=== PATIENT | female | born 1960 | race Caucasian/White ===

== ENCOUNTER 2019-01-27 06:09 | Day surgery (SDC) | payer BC ==
[2019-01-23 11:04] LABS: Absolute Lymphocytes (CBC) 0.7 K/uL (0.7-4.9); Absolute Monocytes 0.5 K/uL (0.1-1.3); Absolute Neutrophil 3.1 K/uL (1.8-8.0); Basophils % 0.5 % (0-1.3); Eosinophils % 1.3 % (0-4.4); Hematocrit 45.6 % (36.0-45.0); Lymphocytes % 16.7 % (15.3-44.8); MPV 10.2 fL (7.6-11.3); Monocytes % 10.3 % (3.3-12.3); RBC Red Blood Cell Count 4.55 M/uL (3.86-4.86)
[2019-01-23 11:08] LABS: Protime INR 0.89
[2019-01-23 11:12] LABS: Potassium 4.1 mmol/L (3.5-5.1)
[2019-01-23 11:23] LABS: Albumin 3.9 g/dL (3.4-5.0); Bilirubin Direct 0.2 mg/dL (0-0.2); Bilirubin Total 0.6 mg/dL (0.2-1.0); Protein, Total 7.5 g/dL (6.4-8.2)
[2019-01-27] MEDS ORDERED: Ringers Lactate 1,000 ML IV ONE ×2 (06:47→11:44)
[2019-01-27] MEDS ORDERED: CEFAZOLIN/SWI 1gm 1 GM/10 ML SYR ONE (06:47)
--- NOTE | 2019-01-27 08:18 | RAD REPORT ---
EXAM DESCRIPTION: NM - Lymphoscintigraphy - 01/27/2019 8:08 am CLINICAL HISTORY: Breast cancer COMPARISON: None. TECHNIQUE: Four injections of 0.01 millicuries technetium filtered sulfur colloid administered into the the holley arerolar region of the right breast. The injections were placed at Twelve o'clock, 3 o'c lock, 6 o'clock and 9 o'clock positions. Subsequently a scintigram was obtained which demonstrated the radiotracer within these locations. IMPRESSION: Right breast lymphoscintigram
[2019-01-27] MEDS ORDERED: METHYLENE BLUE 0.5% 10 ML AMP ONE (08:45)
[2019-01-27] MEDS ORDERED: BUPIVACA 0.25%/EPI 0.0005% MDV 50 ML VIAL ONE (08:45)
[2019-01-27] MEDS ORDERED: PROPOFOL 200 MG/20 ML VIAL IV ONE (10:01)
[2019-01-27] MEDS ORDERED: FENTANYL CITR 100 MCG/2 ML ONE ×3 (10:01→11:18)
[2019-01-27] MEDS ORDERED: MIDAZOLAM HCL 2 MG/2 ML INJ ONE (10:02)
[2019-01-27] MEDS ORDERED: LIDOCAINE 2% MPF 5 ML VIAL ONE (10:02)
[2019-01-27] MEDS ORDERED: ROCURONIUM 50 MG/5 ML VIAL IV ONE (10:03)
[2019-01-27] MEDS ORDERED: ONDANSETRON 4 MG/2 ML VIAL ONE (10:03)
[2019-01-27] MEDS ORDERED: GLYCOPYRROLATE 0.2 MG/ML SYR ONE (10:49)
[2019-01-27] MEDS ORDERED: HYDRALAZINE HCL 20 MG/ML VIAL ONE (11:57)
[2019-01-27] MEDS ORDERED: MORPHINE 10 MG/ML VIAL ONE (11:59)
--- NOTE | 2019-01-27 12:25 | P.OP ---
Psych Therapist: betzy Preoperative diagnosis: Right Breast Invasive Ductal Carcinoma Postoperative diagnosis: Right Breast Invasive Ductal Carcinoma Primary procedure: Right Breast Lumpectomy / Partial Mastectomy Secondary procedure: Axillary Dissection Anesthesia: GETA Estimated blood loss: <20cc Specimen: Right Breast Masses, Axillary Contents Findings: Axilla was negative for radiotracer uptake Complications: None Drain(s): ROGE drain Transferred to: Recovery Room Condition: Good
--- NOTE | 2019-01-27 12:32 | RAD REPORT ---
EXAM DESCRIPTION: US - Surgical Specimen - 01/27/2019 11:58 am CLINICAL HISTORY: Breast neoplasm IMPRESSION: Ultrasound demonstrates the resected hypoechoic breast mass of A to lie within the speci men.
--- NOTE | 2019-01-27 12:33 | RAD REPORT ---
EXAM DESCRIPTION: US - Surgical Specimen - 01/27/2019 11:58 am CLINICAL HISTORY: Breast neoplasm IMPRESSION: Ultrasound demonstrates the resected hypoechoic breast mass of B to lie within the speci men
[2019-01-27] MEDS: HYDROMORPHONE HCL 1 MG/ML INJ ONE ×2 (12:53→12:59)
[2019-01-27] MEDS ORDERED: PROMETHAZINE 25 MG/ML VIAL ONE (13:03)
[2019-01-27] MEDS ORDERED: MEPERIDINE HCL 50 MG/ML AMP ONE (13:13)
--- NOTE | 2019-01-27 13:52 | RAD REPORT ---
EXAM DESCRIPTION: US - Brst,Preop NL Wire Init w/Guid - 01/27/2019 8:37 am CLINICAL HISTORY: Breast masses. TECHNIQUE: Under sonographic evaluation the two breast masses within the upper right breast were loc alized. Skin and subcutaneous tissues were anesthetized with Lidocaine. Hook wires were placed into each lesion within the upper breast. The patient then left for the surgic al department IMPRESSION: Ultrasound-guided needle wire localization of two breast masses.
[2019-01-27] MEDS ORDERED: HYDROCODONE/APAP 7.5/325 MG TAB ONE (15:02)
--- NOTE | 2019-01-27 23:38 | OP ---
Date of Procedure: 01/27/2019 Surgeon: Jaycob Rebollar MD, Preoperative Diagnosis: Right breast invasive ductal carcinoma. Postoperative Diagnosis: Right breast invasive ductal carcinoma. Procedure Performed: Right breast lumpectomy using preoperative needle localization of 2 masses in t he right breast/partial mastectomy. Secondary Procedure: Attempted sentinel lymph node biopsy, but as the sentinel lymph node could not be identified and the axilla was negative for radioactive tracer uptake, an axillary dissection was p erformed. Anesthesia: General endotracheal. Estimated Blood Loss: Less than 20 cc. Specimen: 1.Right breast masses with wire localizations evident. 2.Axillary contents. Findings: 1.Axilla was negative for radiotracer uptake. 2.Faxitron was used to confirm removal of entire breast mass specimen using the previously described needle localization. This verified all the specimen was adequate for removal of the mass. Complications: None. Drains: A 10-Singaporean round ROGE drain left in the axilla. Disposition: Transferred to recovery room in good condition. Procedure In Detail: After informed consent was obtained, the patient was brought to the operating r oom, prepped and draped in the usual sterile fashion. After adequate anesthesia was achieved, I inje cted in the periareolar fashion with 10 cc of methylene blue, 5 minutes of gentle massage to the paige st tissue to attempt to drain the ink to the axilla was performed. The Gamma probe was used on the b reast surface and found to have a count of approximately 18,000 in vivo. There were 2 wires, which w ere previously placed along with the lymphoscintigraphy performed earlier this morning. The wires we re obvious in the 12 o'clock position into the breast tissue. I checked the axilla at this time and did not have significant uptake. It was approximately 100 on the Gamma probe, but I feel that this w as likely bleeded from the rest tissue. As such, I performed a small elliptical incision in the appr oximately 11 o'clock to 12 o'clock position including the 2 wire insertion sites on the right breast. I dissected down in a conical type fashion to include both breasts as 1 specimen. After I took thi s breast tissue out in a conical fashion, good hemostasis was achieved with electrocautery. I orient ed and place orientation stitches on and sent this specimen off. I palpated the area and felt that t here was some fullness into the medial deep margin of the retroareolar mass and as such I took an add itional margin. I took this out, marked it with marking sutures as well and sent it off for Faxitron to confirm that all the masses seen on preoperative imaging were confirmed on intraoperative imaging /postoperative imaging and confirmed that the specimen was removed in its entirety. Once this was co nfirmed, the area was copiously irrigated and closed with interrupted 3-0 Vicryl sutures, and the ski n was closed with a 4-0 Monocryl in running fashion. Dermabond was then placed over the top. I then turned my attention to the axilla and using a slightly lazy-S orientation incision, I made an incisi on. I cut through the fat and into the clavipectoral fascia to expose the axillary contents. I used the Gamma probe, however, a reading greater than 10 could not be appreciated on any of the axillary contents. As such I decided to proceed with an axillary dissection. I dissected down to the latissi mus dorsi and then dissected along the pectoralis major muscle using electrocautery. Once I opened u p the clavipectoral fascia in its entirety, I dissected down to expose the superior aspect of the dis section, which was the brachial vein. When this was exposed, I followed this laterally out to the th oracodorsal neurovascular bundle, which was protected throughout. The medial pectoral vein was also appreciated and this was spared throughout the procedure. I dissected down along the medial aspect a long the serratus anterior to expose the long thoracic nerve, which was protected throughout the proc edure as well. I then continued dissection circumferentially around and into the axillary contents, sweeping down and protecting the thoracodorsal bundle and long thoracic and the medial pectoral bundl e. I continued to dissect out circumferentially and removed the axillary contents in its entirety in a pyramidal fashion. When this was removed, it was sent off for pathologic examination as axillary contents. A blue lymph node was appreciated in the specimen, however, that was a single blue lymph n ode. I sent this for frozen section prior to the completion of the axillary dissection. This came b ack as negative with minimal ink evident within the lymph node. There was minimal ink visualized thr oughout the entire axillary dissection. I then copiously irrigated the area and hemostasis was achie brittani easily without any additional hemostatic maneuvers. At this time, I placed a 10-Singaporean round ROGE drain through a separate stab incision inferior to the previous incision and brought it into the axil erick space. I then reapproximated the deep dermal layers with interrupted 3-0 Vicryl and placed a 4- 0 Monocryl in a running fashion at the skin level. Dermabond was placed again on top. At this point , a suture was placed into the drain suture to secure to the skin, which was a 3-0 nylon suture and a sterile dressing was placed over the top of both the incisions. The patient tolerated the procedure well without complication and transferred to the PACU in good condition. All counts were correct at the end of the case. REED/DODIE Voice ID: [id number] Report ID: [id number]
== END 2019-01-27 16:00 | disposition home or self-care (01) ==
LOC: OR 06:09
PROVIDERS: ATTEND Surgery
PROC: 07B50ZX Excision of Right Axillary Lymphatic, Open Approach, Diagnostic (ICD-10-PCS; 2019-01-27)
PROC: 0HBT0ZX Excision of Right Breast, Open Approach, Diagnostic (ICD-10-PCS; principal; 2019-01-27 09:00)
DX: C50.811 Malignant neoplasm of overlapping sites of right female breast (principal); I10 Essential (primary) hypertension; F17.210 Nicotine dependence, cigarettes, uncomplicated; Z79.82 Long term (current) use of aspirin; Z79.899 Other long term (current) drug therapy
CPT/HCPCS: 19285; 36415; 76098; 78195; 80051; 80076; 82565; 84520; 85025; 85610; 85730; 88305; 88307; 88331; 88332; 88333; A9541; J0360; J0690; J1170; J2175; J2250; J2405; J2550; J2704; J3010

== ENCOUNTER 2019-02-10 08:09 | Day surgery (SDC) | payer BC ==
[2019-02-10] MEDS ORDERED: Ringers Lactate 1,000 ML IV ONE ×2 (08:56→11:42)
[2019-02-10] MEDS ORDERED: VANCOMYCIN/NS 1 gm 1 GM/250 ML BAG IV ONE (09:00)
[2019-02-10] MEDS ORDERED: MIDAZOLAM HCL 2 MG/2 ML INJ ONE (09:21)
[2019-02-10] MEDS ORDERED: ROCURONIUM 50 MG/5 ML VIAL IV ONE (09:21)
[2019-02-10] MEDS ORDERED: PROPOFOL 200 MG/20 ML VIAL IV ONE (09:21)
[2019-02-10] MEDS ORDERED: DEXAMETHASONE 10 MG/ML VIAL ONE (09:21)
[2019-02-10] MEDS ORDERED: LIDOCAINE 2% MPF 5 ML VIAL ONE (09:21)
[2019-02-10] MEDS ORDERED: FENTANYL CITR 250 MCG/5 ML ONE ×2 (09:21→10:35)
[2019-02-10] MEDS ORDERED: ONDANSETRON 4 MG/2 ML VIAL ONE (09:21)
[2019-02-10] MEDS ORDERED: BUPIVACAINE 0.5% PF 10 ML VIAL ONE (09:25)
[2019-02-10] MEDS ORDERED: GLYCOPYRROLATE 0.2 MG/ML SYR ONE (10:11)
[2019-02-10] MEDS ORDERED: EPHEDRINE SULF 50 MG/10 ML SYR ONE (10:13)
--- NOTE | 2019-02-10 11:34 | P.OP ---
Die Cast Technician: Michelle Kerr Preoperative diagnosis: RIGHT breast Invasive Ductal Carcinoma Postoperative diagnosis: RIGHT breast Invasive Ductal Carcinoma Primary procedure: Completion Right Mastectomy Anesthesia: GETA Estimated blood loss: <10cc Specimen: Right Breast, Additional 9 o clock lateral margin Findings: 2 seromas from prior lumpectomy and axillary dissection Complications: None Drain(s): RGOE drain (10 persian flat ROGE) Transferred to: Recovery Room Condition: Good
[2019-02-10] MEDS ORDERED: KETOROLAC 30 MG/ML INJ ONE (11:38)
[2019-02-10] MEDS ORDERED: MEPERIDINE HCL 25 MG/0.5 ML ONE ×3 (12:35→12:54)
[2019-02-10] MEDS ORDERED: HYDROCODONE/APAP 7.5/325 MG TAB ONE (13:31)
--- NOTE | 2019-02-10 22:42 | OP ---
Date of Procedure: 02/10/2019 Surgeon: Jaycob Rebollar MD, Weaver Dobby Loom: Michelle Kerr. Preoperative Diagnosis: Right breast invasive ductal carcinoma. Postoperative Diagnosis: Right breast invasive ductal carcinoma. Procedure Performed: A completion right mastectomy. Anesthesia: General tracheal. Estimated Blood Loss: Less than 10 cc. Specimen: 1.Right breast: 2.Additional 9 o'clock lateral margin. Findings: Two seromas from prior lumpectomy and axillary dissection encountered. Complications: None. Drains: A 10-Palestinian flat ROGE drain. Disposition: Transferred to recovery room in good condition. Brief History Of Present Illness: The patient is a 58-year-old woman who had a history of invasive d uctal carcinoma with 2 foci taken to the operating room approximately 2 weeks ago for a lumpectomy an d sentinel lymph node biopsy. Her axilla was silent and as such, she had an axillary dissection at t he same time. The lumpectomy specimen while tested on the intraoperative aspect was negative initial ly. The final pathology came back as positive margins involved with invasive ductal carcinoma and as such, the patient had a discussion. We decided to move forward with the completion mastectomy and s he had the axillary dissection on the previous surgery, as such we simply needed to perform a complet ion mastectomy on the right. Procedure In Detail: After informed was obtained, the patient was brought to the operating room, pre pped and draped in the usual sterile fashion. After adequate anesthesia achieved, I marked the area in a periareolar fashion to include the previous incision on the breast, which was going up and in a roughly 11 o'clock position, I simply did an elliptical-type incision with change in orientation arou nd this to allow for inclusion of the incision and previous surgical site. Dissection was continued down through the subcutaneous tissues into the dermal plane. The breast tissue was taken off the ski n with thin flaps superiorly to the clavicle, medially to the sternal border, inferiorly to the park l margin, slightly below the inframammary fold and laterally to the latissimus. Two seromas were enc ountered. These were from previous surgery. These were evacuated completely without evidence of com plication. There was no evidence of infection in these areas. The patient's prepectoral fascia was taken off the pectoralis major muscle en bloc with the specimen and the specimen was passed off for p athologic examination. There was a small rim of tissue at the 9 o'clock position, which was felt to be somewhat thicker area of the flap near the latissimus area. This was taken as an additional antonia n. A marking suture was placed in this as it was sent off for pathologic examination. The breast ti ssue also had marking stitches placed prior to being sent off for pathologic examination as well. Th e short stitch marked the 12 o'clock position and the 3 o'clock position was marked with a long sutur e on the breast specimen. The breast was copiously irrigated and cleaned and suctioned out multiple times until there were no fat or particulate matter in the irrigant. Hemostasis was achieved without any additional hemostatic maneuvers at this time as the vast majority of the bleeders were controlle d with simple electrocautery and 2 were controlled with stick ties during the removal of the breast s pecimen. After the area was completely dry, the area was inspected one last time for hemostasis, whi ch was achieved this time. No additional hemostatic maneuvers were required. A 10-Palestinian flat ROGE dr brown was brought out through a lateral inferior stab incision and secured to the skin with a nylon sut ure and passed into the breast cavity. The deep dermal layer was then closed with an interrupted 3-0 Vicryl suture and the skin was closed with a 4-0 Monocryl in a running fashion with Dermabond placed over the top. The patient tolerated the procedure well without evidence of complication and transfe rred to the PACU in good condition. Pressure dressing was placed as well over the breast in the operating room with Andrés bandage. All counts were correct at th e end of the case. REED/DODIE Voice ID: [id number] Report ID: [id number]
== END 2019-02-10 13:45 | disposition home or self-care (01) ==
LOC: OR 08:09
PROVIDERS: ATTEND Surgery
PROC: 0HTT0ZZ Resection of Right Breast, Open Approach (ICD-10-PCS; principal; 2019-02-10 09:30)
DX: C50.911 Malignant neoplasm of unspecified site of right female breast (principal); Z17.0 Estrogen receptor positive status [ER+]; I10 Essential (primary) hypertension; F17.210 Nicotine dependence, cigarettes, uncomplicated; Z79.82 Long term (current) use of aspirin; Z79.899 Other long term (current) drug therapy
CPT/HCPCS: 88307; J1100; J2175; J2250; J2405; J2704; J3010; J3370

== ENCOUNTER 2019-03-05 08:29 | Inpatient (IN) | payer BC ==
[2019-03-05 10:02] LABS: Absolute Lymphocytes (CBC) 0.6 K/uL (0.7-4.9); Absolute Monocytes 0.4 K/uL (0.1-1.3); Absolute Neutrophil 2.7 K/uL (1.8-8.0); Basophils % 0.6 % (0-1.3); Eosinophils % 2.4 % (0-4.4); Hematocrit 38.1 % (36.0-45.0); Lymphocytes % 16.4 % (15.3-44.8); Monocytes % 10.1 % (3.3-12.3); RBC Red Blood Cell Count 3.71 M/uL (3.86-4.86)
[2019-03-05] MEDS: D5 0.45 NS 1,000 ML IV SCH ×2 (10:18→20:27)
[2019-03-05] MEDS: VANCOMYCIN 1.25 GM in NA CHLORIDE 0.9% 250 ML IVPB SCH (11:07)
[2019-03-05] MEDS ORDERED: Ringers Lactate 1,000 ML IV ONE (11:59)
[2019-03-05] MEDS ORDERED: PROPOFOL 200 MG/20 ML VIAL IV ONE (12:07)
[2019-03-05] MEDS ORDERED: FENTANYL CITR 100 MCG/2 ML ONE ×2 (12:07→12:52)
[2019-03-05] MEDS ORDERED: MIDAZOLAM HCL 2 MG/2 ML INJ ONE (12:07)
[2019-03-05] MEDS ORDERED: ROCURONIUM 50 MG/5 ML VIAL IV ONE (12:08)
[2019-03-05] MEDS ORDERED: LIDOCAINE 2% MPF 5 ML VIAL ONE (12:08)
[2019-03-05] MEDS ORDERED: ONDANSETRON 4 MG/2 ML VIAL ONE (12:10)
[2019-03-05] MEDS ORDERED: Mastisol Adhesive Liq ONE (13:08)
[2019-03-05] MEDS ORDERED: GLYCOPYRROLATE 0.2 MG/ML SYR ONE (13:08)
[2019-03-05] MEDS ORDERED: MEPERIDINE HCL 50 MG/ML AMP IM PRN (13:38)
[2019-03-05] MEDS: HYDRALAZINE HCL 20 MG/ML VIAL IV PRN (14:05)
[2019-03-05 15:46] LABS: Urine Appearance CLEAR; Urine Bilirubin NEGATIVE (NEG); Urine Blood NEGATIVE (NEG); Urine Color YELLOW; Urine Glucose NEGATIVE (NEG); Urine Protein NEGATIVE (NEG); Urine Specific Gravity <=1.005 (1.005-1.030); Urine Urobilinogen 0.2 mg/dL (0.2-1.0)
[2019-03-05] MEDS: MORPHINE 2 MG/ML SYR IV PRN ×2 (15:56→21:03)
[2019-03-05 15:57] LABS: Urine Bacteria NONE SEEN /HPF (<20); Urine Culture Reflex Order NOT NEEDED; Urine RBC NONE SEEN /HPF (NONE SEEN)
--- NOTE | 2019-03-05 18:34 | CON ---
A 58-year-old white female, status post right modified radical mastectomy after biopsy showed cancer. Her postop course complicated by flap necrosis, she referred for that. No medical problems other t villalta hypertension, previous surgery on the breast. She smokes about one-tenth of a pack a day. Drink s alcohol occasionally. She is on blood pressure medication. She is 5 feet 5 inches, 157 pounds. S he has a black necrosis of the right breast of 12 cm. Assessment: Dry gangrene status post flap after modified radical mastectomy. Plan will be a debride ment, half liter of IV antibiotics, wound care. WALT/MODLei Voice ID: [id number] Report ID: [id number]
[2019-03-06 04:41] LABS: Absolute Monocytes 0.6 K/uL (0.1-1.3); Absolute Neutrophil 2.1 K/uL (1.8-8.0); Basophils % 0.7 % (0-1.3); Eosinophils % 5.3 % (0-4.4); Hematocrit 33.5 % (36.0-45.0); Lymphocytes % 26.2 % (15.3-44.8); MPV 10.3 fL (7.6-11.3); Monocytes % 14.3 % (3.3-12.3); RBC Red Blood Cell Count 3.25 M/uL (3.86-4.86)
[2019-03-06] MEDS: VANCOMYCIN 1.25 GM in NA CHLORIDE 0.9% 250 ML IVPB SCH ×2 (04:42→22:45)
[2019-03-06] MEDS: HYDRALAZINE HCL 20 MG/ML VIAL IV PRN (04:43)
[2019-03-06] MEDS: D5 0.45 NS 1,000 ML IV SCH ×2 (06:00→09:07)
--- NOTE | 2019-03-06 08:13 | P.PN ---
Subjective Date of Service: 03/06/19 Subjective: Improving (Patient states she feels better after surgery, no acute issues) Physical Examination - Vital Signs Temperature: 98.2 F Blood Pressure: 179/78 Pulse: 73 Respirations: 18 Pulse Ox (%): 99 - Physical Exam General: Alert, In no apparent distress, Cooperative Respiratory: Clear to auscultation bilaterally Musculoskeletal: Other (soft, chest wall improving, WVAC in place on RIGHT chest , fx well) Integumentary: Other (WVAC in place as above) - Studies Laboratory Data (last 24 hrs) 03/06/19 03:41: WBC 3.9 L, Hgb 11.3 L, Hct 33.5 L, Plt Count 142 L 03/05/19 09:42: Sodium 140, Potassium 4.0, BUN 9, Creatinine 0.92, Glucose 104 03/05/19 09:42: WBC 3.8 L, Hgb 12.7, Hct 38.1, Plt Count 155 Assessment And Plan - Current Problems (Diagnosis) (1) Skin flap infection Current Visit: Yes Status: Acute Plan: - continue vancomycin - WVAC change on sunday per - continue current treatment plan
--- NOTE | 2019-03-06 09:26 | OP ---
Surgeon: Javier Koehler MD Preoperative Diagnosis: Open wound of the right breast. Postoperative Diagnosis: Open wound of the right breast. Procedures Performed: Debridement of skin and subcutaneous tissue and placement of VAC. Anesthesia: General. Procedure In Detail: After satisfactory induction of general anesthesia, chest was prepped with Beta dine. Dry sterile drapes were applied in the usual manner. A 10-blade was used to excise the necrot ic tissue, full-thickness flap was from a previous muscle graft from mastectomy. In all, there was a bout 12 x 12 cm. The wound was then curetted, scrubbed with Betadine scrub, was jet lavaged, irrigat ed with 3 L of dilute Betadine solution. The wounds then had a VAC sponge placed. Sterile dressing applied and hooked to suction lines 1.5. The patient tolerated the procedure well and returned to covery. WALT/DODIE Voice ID: [id number] Report ID: [id number]
--- NOTE | 2019-03-06 13:11 | PN ---
The patient's wound has imoroved and plan dressing change tomorrow. We partially closed the wound, take out the VAC, put a small VAC . WALT/DODIE Voice ID: [id number] Report ID: [id number] MTDD
[2019-03-06] MEDS: cloNIDine HCl 0.1 MG TAB PO SCH (21:24)
[2019-03-07] MEDS: D5 0.45 NS 1,000 ML IV SCH (02:00)
[2019-03-07] MEDS: cloNIDine HCl 0.1 MG TAB PO SCH (07:30)
[2019-03-07] MEDS ORDERED: FENTANYL CITR 100 MCG/2 ML ONE ×2 (07:54→08:51)
[2019-03-07] MEDS ORDERED: Ringers Lactate 1,000 ML IV ONE (08:45)
[2019-03-07] MEDS ORDERED: PROPOFOL 200 MG/20 ML VIAL IV ONE (08:51)
[2019-03-07] MEDS ORDERED: MIDAZOLAM HCL 2 MG/2 ML INJ ONE (08:51)
[2019-03-07] MEDS ORDERED: ONDANSETRON 4 MG/2 ML VIAL ONE (09:26)
[2019-03-07] MEDS ORDERED: GLYCOPYRROLATE 0.2 MG/ML SYR ONE (09:31)
[2019-03-07] MEDS ORDERED: Mastisol Adhesive Liq ONE (09:38)
--- NOTE | 2019-03-10 09:21 | OP ---
Surgeon: Javier Koehler MD Preoperative Diagnosis: Open wound, right breast, status post modified radical mastectomy. Postoperative Diagnosis: Open wound, right breast, status post modified radical mastectomy. Procedures Performed: Debridement of skin, subcutaneous tissue, and VAC exchange. Anesthesia: General. Procedure In Detail: After satisfactory induction of general anesthesia, the previous VAC was remove d, and then the chest prepped with Betadine scrub, Betadine paint, dry sterile drapes applied in usua l manner. A scalpel forceps, tenotomy scissors, and curette were used to debride the skin, subcutane ous tissue as needed. The wound was jet lavaged, irrigated with 3 L of dilute Betadine solution. A VAC sponge was placed. Sterile dressing applied. Connected to suction with good seal. The patient tolerated the procedure well. Returned to Recovery. GERTRUDE Voice ID: [id number] Report ID: [id number]
== END 2019-03-07 12:36 | disposition home or self-care (01) | DRG 902 ==
LOC: 4TH 08:45 → OBSVTOIN 03-06 13:57
PROVIDERS: ADMIT Surgery; ATTEND Surgery
PROC: 0JB60ZZ Excision of Chest Subcutaneous Tissue and Fascia, Open Approach (ICD-10-PCS; principal; 2019-03-07 09:00)
DX: T86.828 Other complications of skin graft (allograft) (autograft) (principal); I96 Gangrene, not elsewhere classified; I10 Essential (primary) hypertension; F17.210 Nicotine dependence, cigarettes, uncomplicated; Z79.82 Long term (current) use of aspirin; Y83.2 Surgical operation with anastomosis, bypass or graft as the cause of abnormal reaction of the patient, or of later complication, without mention of misadventure at the time of the procedure
CPT/HCPCS: 36415; 80048; 80202; 81001; 85025; 86850; 86900; 86901; 87070; 87075; 87077; 87186; 87205; 88304; 96365; 96367; G0378; J0360; J2250; J2270; J2405; J2704; J3010

== ENCOUNTER 2019-03-21 11:36 | Day surgery (SDC) | payer BC ==
[2019-03-19 16:10] LABS: Potassium 3.6 mmol/L (3.5-5.1)
[2019-03-19 16:16] LABS: Absolute Lymphocytes (CBC) 1.4 K/uL (0.7-4.9); Absolute Monocytes 0.5 K/uL (0.1-1.3); Absolute Neutrophil 4.4 K/uL (1.8-8.0); Basophils % 0.8 % (0-1.3); Eosinophils % 2.2 % (0-4.4); Hematocrit 39.2 % (36.0-45.0); Lymphocytes % 21.1 % (15.3-44.8); MPV 10.5 fL (7.6-11.3); Monocytes % 7.2 % (3.3-12.3); RBC Red Blood Cell Count 3.84 M/uL (3.86-4.86)
[2019-03-21] MEDS ORDERED: Ringers Lactate 1,000 ML IV ONE (12:25)
[2019-03-21] MEDS: CEFAZOLIN/SWI 1gm 1 GM/10 ML SYR ONE ×2 (13:21→13:50)
[2019-03-21] MEDS ORDERED: MINERAL OIL, LITE 10 ML VIAL ONE (13:44)
[2019-03-21] MEDS ORDERED: FENTANYL CITR 100 MCG/2 ML ONE (13:49)
[2019-03-21] MEDS ORDERED: LIDOCAINE 2% MPF 5 ML VIAL ONE (13:49)
[2019-03-21] MEDS ORDERED: PROPOFOL 200 MG/20 ML VIAL IV ONE (13:49)
[2019-03-21] MEDS ORDERED: MIDAZOLAM HCL 2 MG/2 ML INJ ONE (13:49)
[2019-03-21] MEDS ORDERED: ONDANSETRON 4 MG/2 ML VIAL ONE (13:50)
[2019-03-21] MEDS ORDERED: GLYCOPYRROLATE 0.2 MG/ML SYR ONE (14:35)
[2019-03-21] MEDS ORDERED: Mastisol Adhesive Liq ONE (14:54)
[2019-03-21] MEDS: HYDROMORPHONE HCL 1 MG/ML INJ ONE ×4 (15:12→15:27)
[2019-03-21] MEDS ORDERED: KETOROLAC 30 MG/ML INJ ONE (15:17)
--- NOTE | 2019-03-22 02:27 | OP ---
Surgeon: Javier Koehler MD Geothermal Operations Engineer: Devon. Preoperative Diagnosis: Open wound of left breast status post mastectomy. Postoperative Diagnosis: Open wound of left breast status post mastectomy. Procedure Performed: Debridement of skin, subcutaneous tissue, closure of approximately w ound and split-thickness skin graft. Anesthesia: General. Procedure In Detail: After satisfactory induction of general anesthesia, right side, right breast wa s prepped with Betadine scrub, Betadine paint. Dry sterile drapes were applied in the usual manner. A scalpel forceps, tenotomy scissors, and curette were used to debride the right breast. There was undermining on the back has removed, was then jet lavage irrigated with 3 L of dilute Betadine soluti on. Electrocautery used for hemostasis. Wound was closed cephalad and caudad with running 2-0 Vicry l suture, and then as this was done, skin was harvested from anterolateral thigh, o'clock, split-thick. It was then meshed 1 and 1.5, placed over resected site, held with tony, and a plat e was fixed over the donor and Xeroform and foam rubber sponge over the shifting side. The patient t olerated the procedure well and returned to recovery. WALT/DODIE Voice ID: [id number] Report ID: [id number]
== END 2019-03-21 16:41 | disposition home or self-care (01) ==
LOC: OR 11:36 → EDSTATUS 14:30 → OR 16:41
PROVIDERS: ATTEND Specialist
PROC: 0HRUX7Z (ICD-10-PCS; principal; 2019-03-21 13:00)
DX: S21.002A Unspecified open wound of left breast, initial encounter (principal); I10 Essential (primary) hypertension; F17.200 Nicotine dependence, unspecified, uncomplicated; Z79.82 Long term (current) use of aspirin; Z85.3 Personal history of malignant neoplasm of breast; Z90.11 Acquired absence of right breast and nipple
CPT/HCPCS: 36415; 80048; 85025; 88304; 88312; J0690; J1170; J2250; J2405; J2704; J3010

== ENCOUNTER 2019-05-28 15:13 | Inpatient (IN) | payer BC ==
[2019-05-28 17:15] LABS: Absolute Lymphocytes (CBC) 1.2 K/uL (0.7-4.9); Basophils % 0.8 % (0-1.3); Hematocrit 36.3 % (36.0-45.0); Lymphocytes % 28.8 % (15.3-44.8); MPV 9.9 fL (7.6-11.3); RBC Red Blood Cell Count 3.62 M/uL (3.86-4.86)
[2019-05-28 17:41] LABS: Potassium 4.1 mmol/L (3.5-5.1)
[2019-05-28] MEDS ORDERED: VANCOMYCIN/NS 1 gm 1 GM/250 ML BAG IV SCH (18:00)
[2019-05-28] MEDS: NA CHLORIDE 0.9% 1,000 ML IV SCH (18:05)
[2019-05-28] MEDS: VANCOMYCIN 1.25 GM in NA CHLORIDE 0.9% 250 ML IVPB SCH (18:06)
[2019-05-29] MEDS: HYDRALAZINE HCL 20 MG/ML VIAL IV PRN ×2 (00:39→04:22)
[2019-05-29] MEDS ORDERED: METOPROLOL TARTRATE 5 MG/5 ML INJ IV STA (02:07)
[2019-05-29] MEDS: CLONIDINE 0.2 MG/PATCH TD SCH ×2 (02:29→09:00)
[2019-05-29] MEDS: NA CHLORIDE 0.9% 1,000 ML IV SCH ×3 (03:22→17:00)
[2019-05-29] MEDS ORDERED: METOPROLOL TARTRATE 5 MG/5 ML INJ IV ONE (07:00)
[2019-05-29] MEDS ORDERED: ROCURONIUM 50 MG/5 ML VIAL IV ONE (08:18)
[2019-05-29] MEDS ORDERED: MIDAZOLAM HCL 2 MG/2 ML INJ ONE (08:18)
[2019-05-29] MEDS ORDERED: PROPOFOL 200 MG/20 ML VIAL IV ONE (08:18)
[2019-05-29] MEDS ORDERED: LIDOCAINE 2% MPF 5 ML VIAL ONE (08:18)
[2019-05-29] MEDS ORDERED: FENTANYL CITR 250 MCG/5 ML ONE ×3 (08:18→13:41)
[2019-05-29] MEDS ORDERED: CEFAZOLIN SODIUM 1 GM/VIAL ONE (09:21)
[2019-05-29] MEDS ORDERED: GENTAMICIN SULF 80 MG/2ML INJ ONE (09:21)
[2019-05-29] MEDS ORDERED: BACITRACIN 50000 UNIT VIAL ONE (09:21)
[2019-05-29] MEDS ORDERED: NS 0.9% VIAL 20 ML ONE (09:21)
[2019-05-29] MEDS ORDERED: Ringers Lactate 1,000 ML IV ONE ×3 (10:04→13:44)
[2019-05-29] MEDS ORDERED: GLYCOPYRROLATE 0.2 MG/ML SYR ONE (10:44)
[2019-05-29] MEDS ORDERED: ONDANSETRON 4 MG/2 ML VIAL ONE (10:59)
[2019-05-29] MEDS ORDERED: HYDRALAZINE HCL 20 MG/ML VIAL ONE (12:02)
[2019-05-29] MEDS ORDERED: BUPIVACA 0.25%/EPI 0.0005% MDV 50 ML VIAL ONE (17:01)
[2019-05-29] MEDS: HYDROMORPHONE HCL 1 MG/ML INJ ONE ×2 (17:14→17:22)
[2019-05-29] MEDS ORDERED: MEPERIDINE HCL 25 MG/0.5 ML IV PRN (18:00)
[2019-05-29] MEDS: CEFAZOLIN/SWI 1gm 1 GM/10 ML SYR IVP SCH ×2 (18:13→23:24)
[2019-05-29] MEDS: D5LR 1,000 ML IV SCH (18:13)
[2019-05-29] MEDS: VANCOMYCIN 1.25 GM in NA CHLORIDE 0.9% 250 ML IVPB SCH (18:34)
[2019-05-29] MEDS: MEPERIDINE HCL 25 MG/0.5 ML IM PRN (20:17)
[2019-05-29] MEDS: MORPHINE 2 MG/ML SYR IV PRN (23:14)
[2019-05-30] MEDS: NA CHLORIDE 0.9% 1,000 ML IV SCH (01:00)
[2019-05-30] MEDS: MORPHINE 2 MG/ML SYR IV PRN ×3 (04:00→22:01)
[2019-05-30] MEDS: D5LR 1,000 ML IV SCH ×2 (05:42→15:31)
[2019-05-30] MEDS: CEFAZOLIN/SWI 1gm 1 GM/10 ML SYR IVP SCH ×3 (06:44→17:14)
[2019-05-30] MEDS: MEPERIDINE HCL 25 MG/0.5 ML IM PRN ×3 (06:48→17:28)
[2019-05-30] MEDS ORDERED: NA CHLORIDE 0.9% 500 ML IV ONE ×2 (07:30→21:23)
[2019-05-30 08:12] LABS: Absolute Lymphocytes (CBC) 0.5 K/uL (0.7-4.9); Basophils % 0.1 % (0-1.3); Hematocrit 28.4 % (36.0-45.0); Lymphocytes % 5.5 % (15.3-44.8); MPV 10.9 fL (7.6-11.3); RBC Red Blood Cell Count 2.82 M/uL (3.86-4.86)
--- NOTE | 2019-05-30 08:37 | OP ---
Surgeon: Javier Koehler MD Production Floater: Rufino Preoperative Diagnosis: Status post right modified radical mastectomy. Postoperative Diagnosis: Status post right modified radical mastectomy. Procedure Performed: TRAM flap reconstruction of the right breast. Anesthesia: General. Procedure In Detail: After satisfactory induction of general anesthesia, chest and abdomen prepped with DuraPrep, dry sterile drapes applied in the usual manner and was approached first. An elliptical incision was outlined 2 cm above the umbilicus to approximately 6 cm above the pubic tubercle. The incision was made partial thickness in skin down the right erica TRAM. Intervening skin was de-epithelialized. Then, the flap elevation was performed. A full-thickness incision was made down to the fascia . Then, the flap was elevated from lateral to medial preserving the lateral most resident medical officer for the TRAM. Then, dissected to proceed with cephalad on both sides for the harvest of the pedicle. Then, the anterior rectus sheath was opened with a scalpel and tenotomy scissors proximally as well as superiorly as well as inferiorly. The rectus was divided transverse with electrocautery. The vessels were ligated with Ligaclips. Then, the flap elevation was continued until I was able fold upon itself at the costal margin. Attention was then turned to the breast, the recipient site. Curvilinear incision was made for the inframammary fold then the flap was elevated. The excess tissue from the previous surgery with the skin graft as well as partial flap necrosis were all excised leaving good tissue . A communication was made medially between the 2 pockets. Then, the right erica TRAM was advanced through the pocket and then the deepithelized skin was formed into a cone with 2-0 PDS sutures and 3 straps elevated from the point of the triangle. Straps were about 10 cm long, about 1 cm wide. These straps were then sewn to the muscle and bone and soft tissue remaning medially at the 3 o'clock position, right breast 12 o'clock position and laterally was able be looped through the pectoralis major muscle remnants and sewn to itself with 2-0 Ethibond. After this was done, there was insufficient tissue for closure, and for that reason, the erica TRAM was elevated in identical manner and was transferred. This was used for _external surface coverage. The abdomen was closed. The fascia was closed with 0 Prolene [id number]. The gap below the umbilicus could not be closed. For that reason, Marlex mesh was sewn in place, 10 x 14 inches piece from anterior iliac spine to opposite anterior superior spine and from supraumbilical down lateral and tied to itself. Umbilicus was removed and the umbilicus origin site was oversewn with 0 Prolene. After the mesh was sewn in place, then 10 ROGE drain was brought out laterally and was closed in layers with quilting stitches of 3-0 Vicryl transverse and 3-0 PDS running subcuticular, tied in the midline of the abdomen. Attention was then turned to the breast again. The flaps were then exposed and examined for hemostasis. Excess soft tissue was excised with scalpel with excellent bleeding from the tissue. The outer flap was then placed over and then closed . The closure consisted of interrupted 3-0 Vicryl followed by 3-0 PDS running subcuticular, tied in the around the breast. Dressing with tincture of benzoin, Steri-Strips, fluffs, and elastic dressing and was closed with tincture of benzoin, Steri-Strips, 4 x 4's, elastic tape. Patient tolerated the procedure well. The amount of tissue removed from the right breast was 166 g. WALT/DODIE Voice ID: [id number] Report ID: [id number] HAWA
[2019-05-30] MEDS: ONDANSETRON 4 MG/2 ML VIAL IV PRN ×2 (09:00→15:32)
--- NOTE | 2019-05-30 10:01 | P.PN ---
Subjective Date of Service: 05/30/19 Subjective: New changes (Patient had breast reconstruction yesterday with Dr. Koehler, has post op pain, some mild nausea) Physical Examination - Vital Signs Temperature: 97 F Blood Pressure: 158/81 Pulse: 108 Respirations: 18 Pulse Ox (%): 97 - Physical Exam General: Alert, Cooperative, Mild distress Integumentary: No rashes, No breakdown, No significant lesion, No warmth, No cyanosis - Studies Laboratory Data (last 24 hrs) 05/30/19 07:54: WBC 8.7 D, Hgb 9.6 L D, Hct 28.4 L D, Plt Count 181 D Assessment And Plan - Plan Will transfer care to Dr. Koehler -I have discussed case with Dr. Koehler - continue post op management per Dr. Koehler
--- NOTE | 2019-05-30 14:46 | PN ---
Subjective: The patient had De Santiago removed this morning. Urine output was 200 mL for 8 hours. Drain s put out about 300 mL since surgery. She has more belly pain than breast pain. The wounds were exa mined and dressing removed from the abdomen. The cephalad flap for the donor site is slightly discol ored but should be viable. The breast looks excellent and good capillary refill. The plan will be t o have her void, if she is able to void and wants to go home, we will let go home today, otherwise sh e will stay another day for pain management. WALT/DODIE Voice ID: [id number] Report ID: [id number]
[2019-05-30] MEDS: HYDROCODONE/APAP 10/325 TAB PO PRN (15:33)
[2019-05-30] MEDS: VANCOMYCIN 1.25 GM in NA CHLORIDE 0.9% 250 ML IVPB SCH (17:14)
--- NOTE | 2019-05-30 18:17 | P.CNS ---
Date of Consult: 05/30/19 Reason for Consult: Medical management: HTN Requesting Physician: Javier Koehler Chief Complaint: HTN, pain management History of Present Illness: This is a 58 yr old female with right breast cancer and hypertension admitted for a trans flab abdomen to right breast and mesh to the abdomen. We were consulted to help manage her medical problems, including HTN. Patient's home medications include just clonidine for her BP, which she takes BID. In the hospital, she has a clonidine patch and she is also getting hydralazine IV as needed. For her pain control, she is receiving [place] 1-2 tabs Q6 hrs, along with morphine and demerol. Today, she continued to complain of pain but she had not received her norco yet. Allergies amlodipine [From Norvasc] Adverse Reaction (Verified 02/07/19 08:44) unknown amoxicillin Adverse Reaction (Verified 02/07/19 08:44) unknown azithromycin [From Zithromax] Adverse Reaction (Verified 02/07/19 08:44) unknown cefuroxime [From Ceftin] Adverse Reaction (Verified 02/07/19 08:44) unknown cephalexin Adverse Reaction (Verified 02/07/19 08:44) unknown ciprofloxacin [From Cipro] Adverse Reaction (Verified 02/07/19 08:44) unknown duloxetine [From Cymbalta] Adverse Reaction (Verified 02/07/19 08:44) unknown estrogens, conjugated [From Prempro] Adverse Reaction (Verified 02/07/19 08:44) unknown hydrochlorothiazide [From Prinzide] Adverse Reaction (Verified 02/07/19 08:44) unknown irbesartan [From Avapro] Adverse Reaction (Verified 02/07/19 08:44) unknown levofloxacin [From Levaquin] Adverse Reaction (Verified 02/07/19 08:44) unknown lisinopril Adverse Reaction (Verified 02/07/19 08:44) cough medroxyprogesterone [From Prempro] Adverse Reaction (Verified 02/07/19 08:44) unknown meloxicam [From Mobic] Adverse Reaction (Verified 02/07/19 08:44) unknown nebivolol [From Bystolic] Adverse Reaction (Verified 02/07/19 08:44) insomnia tramadol Adverse Reaction (Verified 02/07/19 08:44) "spaced out" vilazodone [From Viibryd] Adverse Reaction (Verified 02/07/19 08:44) unknown Home medications list reviewed: Yes Home Medications: Aspirin [Aspirin EC 81 MG] 81 mg PO DAILY 01/23/19 Cholecalciferol (Vitamin D3) [Vitamin D3] 1,000 unit PO DAILY 01/23/19 Clonidine HCl [Clonidine HCl ER] 0.1 mg PO BID 01/23/19 Cyanocobalamin [Vitamin B-12] 1,000 mcg PO DAILY 01/23/19 Garlic 1,000 mg PO DAILY 01/23/19 Multivitamin [Multivitamins] 1 each PO DAILY 01/23/19 Soy Isofla/Blk Cohosh/Mag Bark [Estroven 155 mg Capsule] 155 mg PO DAILY Ascorbic Acid [Vitamin C] 1 tab PO DAILY 04/23/19 Potassium Chloride 1 tab PO DAILY 04/23/19 - Past Medical/Surgical History Diabetic: No -: breast cancer right breast -: hypertension -: right mastectomy and lumpectomy - Family History Father Medical History: Lung disease Notes: PULMONARY FIBROSIS - Social History Alcohol use: Yes CD- Drugs: No Caffeine use: Yes Place of Residence: Home Review of Systems 10-point ROS is otherwise unremarkable Physical Examination Temp Pulse Resp BP Pulse Ox 97.6 F 115 H 18 162/85 H 98 05/30/19 16:00 05/30/19 16:00 05/30/19 16:00 05/30/19 16:00 05/30/19 16:00 General: Alert, Oriented x3, Moderate distress HEENT: Atraumatic, PERRLA, Mucous membr. moist/pink, EOMI, Sclerae nonicteric Neck: Supple, 2+ carotid pulse no bruit, No LAD, Without JVD or thyroid abnormality Respiratory: Clear to auscultation bilaterally, Normal air movement Cardiovascular: Normal S1 S2, Irregular heart rate/rhythm (Tachycardic) Gastrointestinal: Other (Abdominal incision: Clean, dry and intact. ) Laboratory Data (last 24 hrs) 05/30/19 17:11: Creatinine 2.18 H D 05/30/19 07:54: WBC 8.7 D, Hgb 9.6 L D, Hct 28.4 L D, Plt Count 181 D - Problems (1) Status post skin flap graft Current Visit: Yes Status: Acute Plan: Management per Primary (Dr. Koehler) - Continue pain management (2) Breast cancer Current Visit: Yes Status: Chronic Qualifiers: Breast location: unspecified site of breast Estrogen receptor status: unspecified Patient sex: female Laterality: right Qualified Code(s): C50.911 - Malignant neoplasm of unspecified site of right female breast (3) Hypertension Current Visit: Yes Status: Chronic Plan: Patient with a hx of HTN on clonide PO BID at home. - Currently, BP is elevated, likely secondary to pain. - Will continue clonidine patch. Will monitor BP with continued pain control and adjust medications as needed. Qualifiers: Hypertension type: essential hypertension Qualified Code(s): I10 - Essential (primary) hypertension (4) Urinary retention Current Visit: Yes Status: Acute Plan: Likely post-surgical along with constipation related to post surgery and pain medications. - De Santiago removed at 6 am today. Patient yet to void. bladder scan with low volume - Continue IVF - Encourage ambulation as this may help. - Continue to monitor renal function and urination. Repeat bladder scan this evening, if elevated, will try intermittent catheter if needed. Conclusions/Impression: Plan: Continue to monitor BP and adjust medications as needed. Thank you for this consult. We will continue to follow along with you.
[2019-05-30 21:29] LABS: Absolute Lymphocytes (CBC) 0.8 K/uL (0.7-4.9); Basophils % 0.3 % (0-1.3); Hematocrit 26.9 % (36.0-45.0); Lymphocytes % 8.9 % (15.3-44.8); MPV 10.1 fL (7.6-11.3); RBC Red Blood Cell Count 2.63 M/uL (3.86-4.86)
[2019-05-30 21:58] LABS: Anisocytosis 1+; Blood Morphology Comment NOTED (NOT SEEN); Platelet Estimate ADEQ
[2019-05-30 23:06] LABS: Potassium 4.9 mmol/L (3.5-5.1)
[2019-05-30 23:09] LABS: Albumin 2.4 g/dL (3.4-5.0)
[2019-05-30 23:14] LABS: Bilirubin Total 0.3 mg/dL (0.2-1.0); Protein, Total 5.7 g/dL (6.4-8.2)
[2019-05-31] MEDS: D5LR 1,000 ML IV SCH ×5 (01:00→23:01)
[2019-05-31] MEDS: CEFAZOLIN/SWI 1gm 1 GM/10 ML SYR IVP SCH ×4 (01:49→19:03)
[2019-05-31] MEDS ORDERED: MAGNESIUM SULFATE 1 gm IVPB 1 GM/100 ML BAG IV ONE (03:57)
[2019-05-31 06:27] LABS: Absolute Lymphocytes (CBC) 0.7 K/uL (0.7-4.9); Basophils % 0.2 % (0-1.3); Hematocrit 23.1 % (36.0-45.0); Lymphocytes % 9.9 % (15.3-44.8); MPV 10.1 fL (7.6-11.3); RBC Red Blood Cell Count 2.28 M/uL (3.86-4.86)
[2019-05-31 06:44] LABS: Magnesium 1.9 mg/dL (1.8-2.4); Phosphorus 4.7 mg/dL (2.5-4.9); Potassium 4.6 mmol/L (3.5-5.1)
[2019-05-31] MEDS: HYDROCODONE/APAP 10/325 TAB PO PRN ×3 (06:53→19:02)
[2019-05-31] MEDS ORDERED: NA CHLORIDE 0.9% 250 ML ONE ×2 (10:45→15:34)
--- NOTE | 2019-05-31 11:41 | P.PN ---
Subjective Date of Service: 05/31/19 Chief Complaint: HTN, pain management Patient seen and examined at bedside. No family at bedside. Chart reviewed and case discussed with nursing staff. Overnight, patient reportedly with a 25 second of V-tach episode. Cardiology was consulted and patient was transferred to the ICU. At the time of my exam in the ICU, patient was alert oriented x3, hemodynamically stable. She reported improved pain. Tele strip was reviewed, she was sinus tach. She stated that overnight, when someone came into the room to check on her prior to this episode, she got scared and jumped which worsened her pain. But doing better at this time. Her De Santiago was reinserted overnight, removed again this morning. Denied any chest pain, shortness of breath, dizziness, headache, vision changes , speech changes, GI complaints. Denied any nausea or vomiting at this time. Review of Systems 10-point ROS is otherwise unremarkable Physical Examination - Vital Signs Temperature: 98.9 F Blood Pressure: 134/57 Pulse: 105 Respirations: 23 Pulse Ox (%): 93 - Physical Exam General: Alert, Oriented x3, Mild distress HEENT: Atraumatic, PERRLA, EOMI Neck: Supple, JVD not distended Respiratory: Clear to auscultation bilaterally, Normal air movement Cardiovascular: Normal S1 S2, Irregular heart rate/rhythm (Sinus tachycardia) Gastrointestinal: Normal bowel sounds, Other (Abdominal incision: Clean, dry and intact.) - Studies Laboratory Data (last 24 hrs) 05/31/19 06:09: Sodium 137, Potassium 4.6, BUN 27 H, Creatinine 2.03 H, Glucose 126 H, Phosphorus 4.7, Magnesium 1.9 05/31/19 06:09: WBC 7.1 D, Hgb 7.8 L*, Hct 23.1 L, Plt Count 142 L 05/31/19 06:00: Phosphorus Cancelled, Magnesium Cancelled 05/30/19 22:32: Sodium 140, Potassium 4.9, BUN 25 H, Creatinine 2.24 H, Glucose 126 H, Total Bilirubin 0.3, AST 16, ALT 14, Alkaline Phosphatase 63 05/30/19 21:22: WBC 9.3, Hgb 8.9 L, Hct 26.9 L, Plt Count 153 05/30/19 17:11: Creatinine 2.18 H D Assessment And Plan - Current Problems (Diagnosis) (1) Status post skin flap graft Current Visit: Yes Status: Acute Plan: Management per Primary (Dr. Koehler) - Continue pain management (2) Breast cancer Current Visit: Yes Status: Chronic Qualifiers: Breast location: unspecified site of breast Estrogen receptor status: unspecified Patient sex: female Laterality: right Qualified Code(s): C50.911 - Malignant neoplasm of unspecified site of right female breast (3) Hypertension Current Visit: Yes Status: Chronic Plan: Patient with a hx of HTN on clonide PO BID at home. - blood pressure much improved this morning. - Will continue clonidine patch. Will monitor BP with continued pain control and adjust medications as needed. Qualifiers: Hypertension type: essential hypertension Qualified Code(s): I10 - Essential (primary) hypertension (4) Urinary retention Current Visit: Yes Status: Acute Plan: Likely post-surgical along with constipation related to post surgery and pain medications. - De Santiago removed at 6 am yesterday Patient yet to void. bladder scan with low volume. De Santiago was reinserted overnight and again removed this morning. - Continue IVF - Encourage ambulation as this may help. - Continue to monitor renal function and urination. Repeat bladder scan this evening, if elevated, will try intermittent catheter if needed. (5) Acute kidney injury Current Visit: Yes Status: Acute Plan: Likely postoperative, improving - continue IV fluids - nephrology consulted, awaiting recommendations. - avoid nephrotoxic drugs/medications (6) Irregular heart rhythm Current Visit: Yes Status: Acute Plan: Patient with a reported 25 second V-tach on tele overnight. Tele strip reviewed. Seems to be more of a wide complex tachycardia. - patient was transferred to the ICU. Cardiology was consulted. -will await cardiology recommendations, and if tele remains stable we will go ahead and transfer patient back to the regular floor this afternoon. (7) Anemia Current Visit: Yes Status: Acute Plan: Acute blood loss anemia, postoperative. - hemoglobin was 7.8, she is currently getting transfused 2 units PRBCs. - continue to monitor H&H. Qualifiers: Anemia type: unspecified type Qualified Code(s): D64.9 - Anemia, unspecified - Plan Plan: Continue to monitor BP and adjust medications as needed. Thank you for this consult. We will continue to follow along with you.
--- NOTE | 2019-05-31 13:30 | P.CNS ---
Date of Consult: 05/31/19 Reason for Consult: MARY Chief Complaint: HTN, pain management History of Present Illness: a 58 Y/o old woman with PMhx of breast CA S?p mastectomy in January, not on chemo or radiation therapy , and HTN pt presented for rt breast skin flap Cr was 0.97 and increased to 2.0 suddenly noticed to have 1 hypotensive episode, Intra-op BP is unknown Pt laso had urinary retention No contrast exposure Currently , no chest pain, palpitation ,nausea or vomiting Hb dropped from 12 to 7.8 Non oliguric Allergies amlodipine [From Norvasc] Adverse Reaction (Verified 02/07/19 08:44) unknown amoxicillin Adverse Reaction (Verified 02/07/19 08:44) unknown azithromycin [From Zithromax] Adverse Reaction (Verified 02/07/19 08:44) unknown cefuroxime [From Ceftin] Adverse Reaction (Verified 02/07/19 08:44) unknown cephalexin Adverse Reaction (Verified 02/07/19 08:44) unknown ciprofloxacin [From Cipro] Adverse Reaction (Verified 02/07/19 08:44) unknown duloxetine [From Cymbalta] Adverse Reaction (Verified 02/07/19 08:44) unknown estrogens, conjugated [From Prempro] Adverse Reaction (Verified 02/07/19 08:44) unknown hydrochlorothiazide [From Prinzide] Adverse Reaction (Verified 02/07/19 08:44) unknown irbesartan [From Avapro] Adverse Reaction (Verified 02/07/19 08:44) unknown levofloxacin [From Levaquin] Adverse Reaction (Verified 02/07/19 08:44) unknown lisinopril Adverse Reaction (Verified 02/07/19 08:44) cough medroxyprogesterone [From Prempro] Adverse Reaction (Verified 02/07/19 08:44) unknown meloxicam [From Mobic] Adverse Reaction (Verified 02/07/19 08:44) unknown nebivolol [From Bystolic] Adverse Reaction (Verified 02/07/19 08:44) insomnia tramadol Adverse Reaction (Verified 02/07/19 08:44) "spaced out" vilazodone [From Viibryd] Adverse Reaction (Verified 02/07/19 08:44) unknown Home Medications: Aspirin [Aspirin EC 81 MG] 81 mg PO DAILY 01/23/19 Cholecalciferol (Vitamin D3) [Vitamin D3] 1,000 unit PO DAILY 01/23/19 Clonidine HCl [Clonidine HCl ER] 0.1 mg PO BID 01/23/19 Cyanocobalamin [Vitamin B-12] 1,000 mcg PO DAILY 01/23/19 Garlic 1,000 mg PO DAILY 01/23/19 Multivitamin [Multivitamins] 1 each PO DAILY 01/23/19 Soy Isofla/Blk Cohosh/Mag Bark [Estroven 155 mg Capsule] 155 mg PO DAILY Ascorbic Acid [Vitamin C] 1 tab PO DAILY 04/23/19 Potassium Chloride 1 tab PO DAILY 04/23/19 - Past Medical/Surgical History Diabetic: No -: breast cancer right breast -: hypertension -: right mastectomy and lumpectomy - Family History Father Medical History: Lung disease Notes: PULMONARY FIBROSIS - Social History Alcohol use: Yes CD- Drugs: No Caffeine use: Yes Place of Residence: Home Physical Examination Temp Pulse Resp BP Pulse Ox 98.9 F 105 H 23 H 134/57 L 93 05/31/19 11:58 05/31/19 11:58 05/31/19 11:58 05/31/19 11:58 05/31/19 11:58 General: Oriented x3, Moderate distress HEENT: Atraumatic Neck: Supple, Without JVD or thyroid abnormality Respiratory: Clear to auscultation bilaterally, Normal air movement Cardiovascular: No rubs, No murmurs, Other (tachycardia, lt arm swelling ), Edema Gastrointestinal: Normal bowel sounds, Other (Camilo drainages with horizontal scar) Laboratory Data (last 24 hrs) 05/31/19 06:09: Sodium 137, Potassium 4.6, BUN 27 H, Creatinine 2.03 H, Glucose 126 H, Phosphorus 4.7, Magnesium 1.9 05/31/19 06:09: WBC 7.1 D, Hgb 7.8 L*, Hct 23.1 L, Plt Count 142 L 05/31/19 06:00: Phosphorus Cancelled, Magnesium Cancelled 05/30/19 22:32: Sodium 140, Potassium 4.9, BUN 25 H, Creatinine 2.24 H, Glucose 126 H, Total Bilirubin 0.3, AST 16, ALT 14, Alkaline Phosphatase 63 05/30/19 21:22: WBC 9.3, Hgb 8.9 L, Hct 26.9 L, Plt Count 153 05/30/19 17:11: Creatinine 2.18 H D - Problems (1) Acute kidney injury Current Visit: Yes Status: Acute (2) Anemia Current Visit: Yes Status: Acute Qualifiers: Anemia type: unspecified type Qualified Code(s): D64.9 - Anemia, unspecified Conclusions/Impression: MARY likely ischemic ATN Cr stable now Monitor Vanco level will order UPC and renal US cont IVF HTN controlled Acute anemia 2/2 blood loss plan for PRBC rt breast CA S/P skin flap
[2019-05-31] MEDS ORDERED: DIAZEPAM 5 MG TABLET PO ONE (14:14)
[2019-05-31 14:46] LABS: Urine Protein/Creatinine Ratio 0.75 ratio (<0.15)
--- NOTE | 2019-05-31 14:47 | P.PN ---
Date of Service: 05/31/19 S: Patient very anxious today. O: Vital signs are stable, receiving 2 units of blood. Incisions are clean, flaps appear viable, appropriate output from ROGE drains. A: Surgically stay P: Continue current therapy.
--- NOTE | 2019-05-31 17:57 | RAD REPORT ---
EXAM DESCRIPTION: US - Renal Ultrasound-Complete - 05/31/2019 5:41 pm CLINICAL HISTORY: Acute renal insufficiency COMPARISON: None. FINDINGS: The right kidney measures 10 cm with an increased echotexture. Evaluation was somewhat murphy ited. Left kidney was not imaged secondary to difficulty with patient positioning. Hydronephrosis is not seen. No gross abnormality of bladder is seen IMPRESSION: Unremarkable right renal ultrasound Left kidney was not evaluated
[2019-05-31] MEDS ORDERED: Magnesium Sulfate 2gm IVPB 2 G/50 ML BAG IV ONE (20:00)
[2019-05-31 23:32] LABS: Hematocrit 25.6 % (36.0-45.0)
[2019-06-01] MEDS: CEFAZOLIN/SWI 1gm 1 GM/10 ML SYR IVP SCH ×5 (00:54→23:48)
[2019-06-01] MEDS: HYDROCODONE/APAP 10/325 TAB PO PRN ×2 (05:30→17:36)
[2019-06-01] MEDS: D5LR 1,000 ML IV SCH ×2 (06:29→11:00)
[2019-06-01 06:40] LABS: Urine Appearance CLOUDY; Urine Bilirubin NEGATIVE (NEG); Urine Blood 2+ (NEG); Urine Color YELLOW; Urine Glucose NEGATIVE (NEG); Urine Microscopic Reflex ORDER UMIC; Urine Protein 1+ (NEG); Urine Specific Gravity 1.015 (1.005-1.030); Urine Urobilinogen 0.2 mg/dL (0.2-1.0)
[2019-06-01 07:55] LABS: Urine Bacteria <20 /HPF (<20); Urine Coarse Granular Casts 0-5 /LPF (NONE SEEN); Urine Culture Reflex Order NOT NEEDED; Urine RBC <5 /HPF (NONE SEEN)
[2019-06-01] MEDS ORDERED: DIAZEPAM 5 MG TABLET PO ONE (08:42)
[2019-06-01 08:58] LABS: Absolute Lymphocytes (CBC) 0.5 K/uL (0.7-4.9); Basophils % 0.2 % (0-1.3); Lymphocytes % 7.6 % (15.3-44.8); MPV 9.9 fL (7.6-11.3); RBC Red Blood Cell Count 2.71 M/uL (3.86-4.86)
[2019-06-01 09:06] LABS: Magnesium 2.4 mg/dL (1.8-2.4); Phosphorus 2.5 mg/dL (2.5-4.9); Potassium 3.9 mmol/L (3.5-5.1)
[2019-06-01] MEDS: DOCUSATE NA 100 MG CAP PO SCH ×2 (10:14→20:34)
--- NOTE | 2019-06-01 10:49 | P.PN ---
Subjective Date of Service: 06/01/19 Chief Complaint: HTN, pain management Subjective: Improving Subjective pt with mastectomy , presented for skin flap Sanchez Cr up to 2.0 today feels better Voiding spontaneously Will reduce IVF to 60ml/hr Pt/OT Physical Examination - Vital Signs Temperature: 97.5 F Blood Pressure: 144/72 Pulse: 95 Respirations: 19 Pulse Ox (%): 96 - Physical Exam General: In no apparent distress, Oriented x3 HEENT: Atraumatic Neck: Supple, Without JVD or thyroid abnormality Respiratory: Clear to auscultation bilaterally, Normal air movement Cardiovascular: Normal pulses, Normal S1 S2, Other (Lt arm edema, tachycardia ) Gastrointestinal: Normal bowel sounds, Other (horizaontal wound ,2 Camilo drainage ) Musculoskeletal: No swelling - Studies Laboratory Data (last 24 hrs) 06/01/19 08:45: Sodium 135 L, Potassium 3.9, BUN 17, Creatinine 1.16, Glucose 152 H, Phosphorus 2.5, Magnesium 2.4 D 06/01/19 08:45: WBC 6.1 D, Hgb 8.8 L, Hct 26.0 L, Plt Count 124 L 05/31/19 23:07: Hgb 9.2 L, Hct 25.6 L Assessment And Plan - Current Problems (Diagnosis) (1) Acute kidney injury Current Visit: Yes Status: Acute (2) Anemia Current Visit: Yes Status: Acute - Plan SANCHEZ likely prerenal Aoztemia +/- ischemic ATN Cr improved off Vanco UPC 0.7, renal US lt kidney not seen, Rt mild echogenic , no hydro [place] lreduce IVF to 60ml/hr HTN controlled Acute anemia 2/2 blood loss S/p PRBC rt breast CA S/P skin flap
--- NOTE | 2019-06-01 11:38 | P.PN ---
Subjective Date of Service: 06/01/19 Chief Complaint: HTN, pain management Subjective: Improving Patient seen and examined at bedside. No family at bedside. Chart reviewed and case discussed with nursing staff. Doing better this morning. Pain well controlled. Spontaneously voiding. Tele monitor reviewed, no further episodes of questionable V-tach/ irregularities. Denied any chest pain, shortness of breath, dizziness, headache, vision changes , speech changes, GI complaints. Denied any nausea or vomiting at this time. Review of Systems 10-point ROS is otherwise unremarkable Physical Examination - Vital Signs Temperature: 97.5 F Blood Pressure: 144/72 Pulse: 95 Respirations: 19 Pulse Ox (%): 96 - Physical Exam General: Alert, Oriented x3, Mild distress HEENT: Atraumatic, PERRLA, EOMI Neck: Supple, JVD not distended Respiratory: Clear to auscultation bilaterally, Normal air movement Cardiovascular: Regular rate/rhythm, Normal S1 S2 Gastrointestinal: Normal bowel sounds, No tenderness Musculoskeletal: No tenderness Integumentary: Other (Flap viable; abdominal incision clear/intact and dry.) Neurological: Normal speech, Normal tone, Normal affect Lymphatics: No axilla or inguinal lymphadenopathy - Studies Laboratory Data (last 24 hrs) 06/01/19 08:45: Sodium 135 L, Potassium 3.9, BUN 17, Creatinine 1.16, Glucose 152 H, Phosphorus 2.5, Magnesium 2.4 D 06/01/19 08:45: WBC 6.1 D, Hgb 8.8 L, Hct 26.0 L, Plt Count 124 L 05/31/19 23:07: Hgb 9.2 L, Hct 25.6 L Assessment And Plan - Current Problems (Diagnosis) (1) Status post skin flap graft Current Visit: Yes Status: Acute Plan: Management per Primary (Dr. Koehler) - Continue pain management (2) Breast cancer Current Visit: Yes Status: Chronic (3) Hypertension Current Visit: Yes Status: Chronic Plan: Patient with a hx of HTN on clonide PO BID at home. - blood pressure much improved this morning. - Will continue clonidine patch. Will monitor BP with continued pain control and adjust medications as needed. (4) Urinary retention Current Visit: Yes Status: Acute Plan: Likely post-surgical along with constipation related to post surgery and pain medications. - resolved. - De Santiago removed. Patient now spontaneously voiding - Continue IVF, rate decreased. - Encourage ambulation as this may help. - Continue to monitor renal function and urination. Repeat bladder scan this evening, if elevated, will try intermittent catheter if needed. (5) Acute kidney injury Current Visit: Yes Status: Acute Plan: Likely postoperative, improving creatinine - continue IV fluids - nephrology consulted, recommendations appreciated. - avoid nephrotoxic drugs/medications (6) Irregular heart rhythm Current Visit: Yes Status: Acute Plan: Resolved. Patient with a reported 25 second V-tach on tele overnight. Tele strip reviewed. Seems to be more of a wide complex tachycardia. - patient was transferred to the ICU. Cardiology was consulted. -transfer patient out of ICU to the floor. (7) Anemia Current Visit: Yes Status: Acute Plan: Acute blood loss anemia, likely postoperative. - hemoglobin was 7.8, s/p 2 units PRBCs. H&H stable at this time - continue to monitor H&H. - Plan Plan: Continue to monitor BP and adjust medications as needed. Continue to monitor H&H. Transfer patient to the floor Thank you for this consult. We will continue to follow along with you.
--- NOTE | 2019-06-01 14:27 | RAD REPORT ---
EXAM DESCRIPTION: RAD - Chest Single View - 06/01/2019 12:43 pm CLINICAL HISTORY: Hypoxia COMPARISON: None. TECHNIQUE: AP portable chest image was obtained 1202 hours . FINDINGS: Lung volumes are low accentuating lung markings. No focal consolidation. Minimal interstit ial edema or infiltrate could be masked by the shallow inspiration. Heart size magnified. No measurab le pleural effusion and no pneumothorax. No acute bony abnormality seen. No acute aortic findings sabine pected. IMPRESSION: Limited shallow inspiration chest film shows no focal mass or consolidation. Lung markings are accentuated by the low lung volumes potentially masking early interstitial edema or infiltrate.
--- NOTE | 2019-06-01 15:49 | CON ---
Date of Consultation: 05/31/2019 Patient was admitted by Dr. Koehler on 05/30/2019. I saw the patient on 05/31/2019. Reason For Consultation: Ventricular tachycardia. History Of Present Illness: Ms. De La Paz is a 58-year-old woman with history of hypertension, otherwis e no previous cardiac history. She was here for right breast skin surgery. While she was in the ICU , she dropped her hemoglobin from 12 to 7.8. Her creatinine went from 0.97 to 2.03. She had 1 episo de of 25-beat of ventricular tachycardia that was asymptomatic without any hemodynamic compromise. N o chest pain. No shortness of breath, PND, orthopnea, pedal edema, palpitation, or syncope. Past Medical History: Positive for hypertension. Allergies: SHE IS ALLERGIC TO AMLODIPINE, AZITHROMYCIN, AMOXICILLIN, CIPROFLOXACIN, AND CEPHALEXIN. Medications: At home include potassium, clonidine, and aspirin. Review of Systems: Negative. Social History: Negative. Family History: Noncontributory. Physical Examination: Vital Signs: Stable. She is afebrile. HEENT: Negative. Neck: Supple. No bruit. Chest: Clear. Cardiac: Revealed regular rhythm and rate. No murmurs, gallops, or rubs. Abdomen: Benign. Extremities: Reveal no clubbing, cyanosis, or edema. Diagnostic Data: As stated earlier. Baseline EKG showed nonspecific changes. Impression And Plan: 1.Hypertension, on clonidine patch. 2.Anemia, workup pending. 3.Renal failure, acute, possibly secondary to hypotension and acute tubular necrosis. Nephrology is following. 4.Ventricular tachycardia, 1 episode. Her magnesium was 1.9, was supplemented with more magnesium. We should consider low-dose beta-caryn. An echocardiogram is pending for Sunday. I will continue to follow her. LASHAE/DODIE Voice ID: [id number] Report ID: [id number]
[2019-06-01] MEDS ORDERED: HYDRALAZINE HCL 20 MG/ML VIAL IV ONE (18:00)
--- NOTE | 2019-06-01 19:12 | PN ---
Date of Progress Note: 06/01/2019 Ms. De La Paz was seen initially on 05/31/2019, because of an episode of ventricular tachycardia at 25 b eats without hemodynamic compromise. She has anemia. She has renal failure, hypertension, was given magnesium as a supplementation. Her magnesium was 1.9 initially. Mag is pending for today. Echoca rdiogram is pending for Sunday. No further ventricular tachycardia at this point. She can go to tel emetry. LASHAE/DODIE Voice ID: [id number] Report ID: [id number]
[2019-06-02] MEDS ORDERED: HYDRALAZINE HCL 20 MG/ML VIAL IV ONE (01:56)
[2019-06-02] MEDS ORDERED: HYDRALAZINE HCL 20 MG/ML VIAL IV PRN (01:56)
[2019-06-02] MEDS: D5LR 1,000 ML IV SCH (02:38)
[2019-06-02] MEDS ORDERED: METOPROLOL TARTRATE 5 MG/5 ML INJ IV STA (03:26)
[2019-06-02] MEDS ORDERED: DIAZEPAM 5 MG TABLET PO ONE (03:26)
[2019-06-02] MEDS: CEFAZOLIN/SWI 1gm 1 GM/10 ML SYR IVP SCH ×3 (05:41→17:23)
[2019-06-02] MEDS: METOPROLOL XL 50 MG TAB PO SCH (05:42)
[2019-06-02] MEDS: MORPHINE 2 MG/ML SYR IV PRN ×2 (05:42→20:48)
[2019-06-02 06:14] LABS: Albumin 2.3 g/dL (3.4-5.0); Bilirubin Total 0.5 mg/dL (0.2-1.0); Phosphorus 1.7 mg/dL (2.5-4.9); Potassium 3.7 mmol/L (3.5-5.1); Protein, Total 6.4 g/dL (6.4-8.2)
[2019-06-02 06:22] LABS: Absolute Lymphocytes (CBC) 0.3 K/uL (0.7-4.9); Basophils % 0.2 % (0-1.3); Hematocrit 26.9 % (36.0-45.0); Lymphocytes % 6.3 % (15.3-44.8); MPV 10.4 fL (7.6-11.3); RBC Red Blood Cell Count 2.81 M/uL (3.86-4.86)
[2019-06-02] MEDS: DOCUSATE NA 100 MG CAP PO SCH ×2 (08:09→20:49)
--- NOTE | 2019-06-02 09:36 | P.PN ---
Subjective Date of Service: 06/02/19 Chief Complaint: HTN, pain management Patient seen and examined at bedside. No family at bedside. Chart reviewed and case discussed with nursing staff. Doing better this morning. Pain well controlled. Spontaneously voiding. Tele monitor reviewed, no further episodes of questionable V-tach/ irregularities. Remained stable on floor in regards to cardiac status. Denies any chest pain, shortness of breath, dizziness, headache, vision changes , speech changes, GI complaints. Denied any nausea or vomiting at this time. Review of Systems 10-point ROS is otherwise unremarkable Physical Examination - Vital Signs Temperature: 98.5 F Blood Pressure: 160/80 Pulse: 90 Respirations: 18 Pulse Ox (%): 98 - Physical Exam General: Alert, In no apparent distress, Oriented x3 HEENT: Atraumatic, PERRLA, EOMI Neck: Supple, JVD not distended Respiratory: Clear to auscultation bilaterally, Normal air movement Cardiovascular: Regular rate/rhythm, Normal S1 S2 Gastrointestinal: Normal bowel sounds, No tenderness Musculoskeletal: No tenderness Integumentary: Other (Side of incision on abdomen with some discoloration along the incision site, no discharge noted.) Neurological: Normal speech, Normal tone, Normal affect Lymphatics: No axilla or inguinal lymphadenopathy - Studies Laboratory Data (last 24 hrs) 06/02/19 05:28: Sodium 138, Potassium 3.7, BUN 10, Creatinine 0.70, Glucose 113 H, Phosphorus 1.7 L, Magnesium 2.0, Total Bilirubin 0.5, AST 22, ALT 12, Alkaline Phosphatase 91 06/02/19 05:28: WBC 5.5, Hgb 9.0 L, Hct 26.9 L, Plt Count 168 D Assessment And Plan - Current Problems (Diagnosis) (1) Status post skin flap graft Current Visit: Yes Status: Acute Plan: Management per Primary (Dr. Koehler) - Continue pain management (2) Breast cancer Current Visit: Yes Status: Chronic Qualifiers: Breast location: unspecified site of breast Estrogen receptor status: unspecified Patient sex: female Laterality: right Qualified Code(s): C50.911 - Malignant neoplasm of unspecified site of right female breast (3) Hypertension Current Visit: Yes Status: Chronic Plan: Patient with a hx of HTN on clonide PO BID at home. - blood pressure continues to be labile. She did require IV hydralazine doses overnight. Unfortunately due to patient's multiple allergies to different blood pressure medications we do not have many other options on oral medication - Will continue clonidine patch. Metoprolol p.o. added. Will monitor BP with continued pain control and adjust medications as needed. Qualifiers: Hypertension type: essential hypertension Qualified Code(s): I10 - Essential (primary) hypertension (4) Urinary retention Current Visit: Yes Status: Resolved Plan: Likely post-surgical along with constipation related to post surgery and pain medications. - resolved. - De Santiago removed. Patient now spontaneously voiding - Continue IVF, rate decreased. - Encourage ambulation as this may help. - Continue to monitor renal function and urination. Repeat bladder scan this evening, if elevated, will try intermittent catheter if needed. (5) Acute kidney injury Current Visit: Yes Status: Resolved Plan: Likely postoperative, resolves, creatinine normalized - continue IV fluids - nephrology consulted, recommendations appreciated. - avoid nephrotoxic drugs/medications (6) Irregular heart rhythm Current Visit: Yes Status: Resolved Plan: Resolved. Patient with a reported 25 second V-tach on tele overnight. Tele strip reviewed. Seems to be more of a wide complex tachycardia. - patient was transferred to the ICU. Cardiology was consulted. -patient stable on full. (7) Anemia Current Visit: Yes Status: Acute Plan: Acute blood loss anemia, likely postoperative. - hemoglobin was 7.8, s/p 2 units PRBCs. H&H stable at this time - continue to monitor H&H. Qualifiers: Anemia type: unspecified type Qualified Code(s): D64.9 - Anemia, unspecified - Plan Plan: Continue to monitor BP and adjust medications as needed. Continue to monitor H&H. Thank you for this consult. We will continue to follow along with you.
--- NOTE | 2019-06-02 12:49 | PN ---
The patient is on the floor now. She is still doing well. She had a bowel movement x2. She is taking a little bit of liquids and eating some food . She is healing slowly. The breast has some mild discoloration. The flap has some discoloration inferiorly. We will plan on discharging on Sunday. She may need a revision of the inferior flap before she goes. WALT/DODIE Voice ID: [id number] Report ID: [id number] MTDD
--- NOTE | 2019-06-02 15:58 | PN ---
Subjective: The patient is in ICU because she had a run of V-tachycardia. At this time, no episodes of recurrence. She is doing well otherwise. She has a central line placed for IV access. She rece ived 2 units of blood and the wounds are healing well. The dressings were removed. The Steri-Strips are in place. She has slight discoloration on the right breast and some discoloration on the inferi or most portion of the cephalad flap close to the abdomen. We will plan on transferring to floor tovalerie GODOY/DODIE Voice ID: [id number] Report ID: [id number]
[2019-06-03] MEDS: CEFAZOLIN/SWI 1gm 1 GM/10 ML SYR IVP SCH ×4 (00:09→12:00)
[2019-06-03] MEDS: HYDROCODONE/APAP 10/325 TAB PO PRN (00:12)
--- NOTE | 2019-06-03 01:50 | PN ---
Date of Progress Note: 06/02/2019 Chief Complaint: Acute kidney injury. History Of Present Illness: Serum creatinine was up to 2.0. Patient responded to IV fluids and IV f luids recently have been titrated down. Patient has slight edema. She is on p.o. diet and low-sodiu m diet. Patient recently underwent mastectomy, presented for skin flap. Review of Systems: Denies fevers or chills. Physical Examination: LUNGS: Few crackles at bases. HEART: S1-S2. ABDOMEN: Soft, benign. EXTREMITIES: Minimal edema. Laboratory Data: Sodium is 138, potassium 3.7, chloride 106, CO2 25, BUN 10, creatinine 0.7, glucose 113, phosphorus 1.7, magnesium 2.0. Impression And Plan: 1.Acute kidney injury in recovery phase. 2.Hyponatremia, resolved. Sodium level is improving. 3.Hypophosphatemia, replacement will be ordered as needed. 4.Hypoalbuminemia, increase p.o. protein intake. CHAD/MODL Voice ID: [id number] Report ID: [id number]
[2019-06-03] MEDS: METOPROLOL XL 50 MG TAB PO SCH (06:00)
[2019-06-03] MEDS: DOCUSATE NA 100 MG CAP PO SCH (07:50)
[2019-06-03] MEDS ORDERED: POTASS/SODIUM PHOSPHATE 1 PKT POWD.PACK PO SCH (09:00)
[2019-06-03] MEDS ORDERED: FENTANYL CITR 100 MCG/2 ML ONE (10:57)
[2019-06-03] MEDS ORDERED: MIDAZOLAM HCL 2 MG/2 ML INJ ONE (10:57)
[2019-06-03] MEDS ORDERED: LIDOCAINE 2% MPF 5 ML VIAL ONE (10:57)
[2019-06-03] MEDS ORDERED: PROPOFOL 200 MG/20 ML VIAL IV ONE (10:57)
[2019-06-03] MEDS ORDERED: Ringers Lactate 1,000 ML IV ONE (11:13)
[2019-06-03] MEDS ORDERED: ONDANSETRON 4 MG/2 ML VIAL ONE (11:59)
[2019-06-03] MEDS ORDERED: POTASSIUM PHOS IN 0.9 % NACL 15 MMOL/250 ML BAG IV ONE (12:06)
[2019-06-03] MEDS ORDERED: Mastisol Adhesive Liq ONE (12:43)
[2019-06-03] MEDS ORDERED: MEPERIDINE HCL 25 MG/0.5 ML ONE (12:45)
--- NOTE | 2019-06-03 16:59 | PN ---
Date of Progress Note: 06/03/2019 Subjective: Patient is doing well. Plan for I and D today. Physical Examination: Vital Signs: Blood pressure 152/80, pulse of 90, afebrile. Chest: Clear to auscultation. Heart: S1 and S2 regular. Abdomen: Soft, nontender. Extremities: Trace edema. Laboratory Data: H and H of 07/24.9. Sodium 138, potassium 3.7, bicarb 25, BUN 10, creatinine 0.7, c alcium 9.1, phosphorus 1.7. Current Medications: The patient on include clonidine, hydralazine p.r.n., metoprolol 50 b.i.d., Zof ran, docusate, hydrocodone. Assessment And Plan: 1.Acute kidney injury secondary to prerenal, recovered, resolved. 2.Hypokalemia, hypophosphatemia. I am going to replace. 3.Leg infection. Continue current antibiotic, dose appropriate. YURIY Voice ID: [id number] Report ID: [id number]
--- NOTE | 2019-06-04 08:28 | DS ---
Date of Discharge: 06/03/2019 The patient is a 58-year-old white female admitted to Dr. Rebollar status post right modified complicated by partial flap necrosis. She is in now for reconstruction of her right breast. The left breast has undergone previous breast lift. She has history of high blood pressure. She does not smoke anymore. Physical Examination: General: She is 5 feet 1 inch, 165 pounds. Chest: She has skin grafted area on the right breast from the previous the flap failure. Abdomen: Protuberant. She is assessed to be a candidate for TRAM flap reconstruction. She underwent surgery, TRAM flap reconstruction of her right breast. She was placed on telementry. During the first night postop, she developed episode of ventricular fibrillation, was transferred to ICU for monitoring, resolved. She was back on the floor and then underwent observation for several days. The most inferior portion of the abdominal flap developed skin discoloration and the left portion of the TRAM was discolored as well. She was taken back to Surgery for revision of the donor site and closure, revision of the TRAM. She was discharged home on Tylenol 3 one tab p.o. q.3 hours p.m. pain, Bactrim DS 1 tab p.o. q.12 hours. Return to office the following Sunday at 2 o'clock at [facility]. Condition at discharge good. WALT/DODIE Voice ID: [id number] Report ID: [id number] MTDD
--- NOTE | 2019-06-04 08:28 | OP ---
Surgeon: Javier Koehler MD Preoperative Diagnoses: Ischemic abdominal flap and ischemic lateral transverse rectus abdominis anthony cutaneous flap status post reconstruction of right breast with a transverse rectus abdominis myocutan eous flap. Preoperative Diagnoses: Ischemic abdominal flap and ischemic lateral transverse rectus abdominis anthony cutaneous flap status post reconstruction of right breast with a transverse rectus abdominis myocutan eous flap. Procedure Performed: Revision of breast reconstruction and debridement of skin and subcutaneous tiss ue with layered closure of donor site. Anesthesia: General. Procedure In Detail: After satisfactory induction of general anesthesia, the abdomen and breasts wer e prepped with Betadine scrub, Betadine paint, dry sterile drapes were applied in the usual manner. The abdomen was approached first. Elliptical incision was made centered over the previous incision, then cephalad to approximately 5 cm. The ischemic flap was excised, then the wound was irrigated wit h saline, and then closed in layers with 3-0 Vicryl on subcu and tony on the skin. Attention was then turned to the breast. The lateral portion of the TRAM flap, which is the most distal portion fr om the blood supply had some discoloration. It was excised approximately 3 cm at the widest point an d tapering down. This cut extended from approximately the 7 o'clock position to 11 o'clock position on the right breast. After this was excised, the wound was irrigated with saline and wound closed wi th 3-0 Vicryl subcu, 3-0 PDS running subcuticular. Dressings of tincture of benzoin, Steri-Strips, 4 x 4, tape on the breast and 4 x 4 and tape on the abdomen. Estimated Blood Loss: 100 cc. WALT/DODIE Voice ID: [id number] Report ID: [id number]
== END 2019-06-03 15:02 | disposition home or self-care (01) | DRG 570 ==
LOC: 3RD 15:13 → 2ND 15:18 → OBSVTOIN 05-30 12:01 → 3RD-ICU 05-31 09:18 → 2ND 06-01 11:30
PROVIDERS: ADMIT Specialist; ATTEND Specialist
PROC: 0KXK0Z6 Transfer Right Abdomen Muscle, Transverse Rectus Abdominis Myocutaneous Flap, Open Approach (ICD-10-PCS; principal; 2019-05-29 09:30)
PROC: 30233N1 Transfusion of Nonautologous Red Blood Cells into Peripheral Vein, Percutaneous Approach (ICD-10-PCS; 2019-05-31)
PROC: 0JB80ZZ Excision of Abdomen Subcutaneous Tissue and Fascia, Open Approach (ICD-10-PCS; 2019-06-03)
PROC: 0HBT0ZZ Excision of Right Breast, Open Approach (ICD-10-PCS; 2019-06-03)
DX: Z42.1 Encounter for breast reconstruction following mastectomy (principal); N17.0 Acute kidney failure with tubular necrosis; I47.2 Ventricular tachycardia; D62 Acute posthemorrhagic anemia; E87.1 Hypo-osmolality and hyponatremia; T81.89XA Other complications of procedures, not elsewhere classified, initial encounter; Y83.4 Other reconstructive surgery as the cause of abnormal reaction of the patient, or of later complication, without mention of misadventure at the time of the procedure; Y92.230 Patient room in hospital as the place of occurrence of the external cause; I10 Essential (primary) hypertension; F17.210 Nicotine dependence, cigarettes, uncomplicated; R33.9 Retention of urine, unspecified; K59.00 Constipation, unspecified; E83.39 Other disorders of phosphorus metabolism; E88.09 Other disorders of plasma-protein metabolism, not elsewhere classified; E87.6 Hypokalemia; Z79.82 Long term (current) use of aspirin; Z85.3 Personal history of malignant neoplasm of breast; Z88.1 Allergy status to other antibiotic agents
CPT/HCPCS: 36415; 36430; 71045; 76770; 80048; 80053; 80202; 81003; 81015; 82565; 82570; 83735; 84100; 84132; 84156; 85014; 85018; 85025; 86850; 86900; 86901; 88304; 88305; 97116; 97161; 97530; G0378; J0360; J0690; J1170; J1580; J2175; J2250; J2270; J2405; J2704; J3010; J3370; J3475; J7030; P9016

== ENCOUNTER 2019-07-08 08:01 | Inpatient (IN) | payer BC ==
--- NOTE | 2019-07-08 08:33 | EDPHYS ---
Physician Documentation [facility] Name: Eva De La Paz Age: 58 yrs Sex: Female : 1960 Arrival Date: 07/08/2019 Time: 08:06 Bed 15 Private MD: ED Physician Alexis Acevedo HPI: 07/08 08:13 This 58 yrs old Female presents to ER via Ambulatory with complaints of Skin jmm Problem. 08:13 Patient presents to ED for recheck of: post op mastectomy. The affected area is on the [facility] chest. Progress: The patient reports increased redness, swelling. This is a 58 year old female with a history of breast cancer, HTN that presents to the ED with complaints of increased redness and swelling to her breast post mastectomy performed on May 29. Patient has been taking bactrim. Patient was advised by Dr. Koehler yesterday of the need for surgical debridement. . Historical: - Allergies: 08:11 amlodipine; ph 08:11 Amoxicillin; ph 08:11 Azithromycin; ph 08:11 Cefuroxime; ph 08:11 Cephalexin; ph 08:11 Ciprofloxacin; ph 08:11 Duloxetine; ph 08:11 estrogens, conjugated; ph 08:11 Hydrochlorothiazide; ph 08:11 irbesartan; ph 08:11 Levofloxacin; ph 08:11 Lisinopril; ph 08:11 Medroxyprogesterone; ph 08:11 meloxicam; ph 08:11 nebivolol; ph 08:11 tramadol; ph 08:11 vilazodone; ph - Home Meds: 08:11 clonidine HCl 0.1 mg Oral tab 1 tab 2 times per day [Active]; ph - PMHx: 08:11 breast cancer; Hypertension; ph - PSHx: 08:11 right mastectomy; ph - Immunization history:: Adult Immunizations unknown. - Social history:: Smoking status: Patient/guardian denies using tobacco. - Ebola Screening: : No symptoms or risks identified at this time. ROS: 08:13 Constitutional: Negative for fever, chills, and weight loss, Cardiovascular: Negative [facility] for chest pain, palpitations, and edema, Respiratory: Negative for shortness of breath, cough, wheezing, and pleuritic chest pain. 08:13 Skin: Positive for erythema. 08:13 All other systems are negative. Exam: 08:13 Constitutional: This is a well developed, well nourished patient who is awake, alert, jmm and in no acute distress. Head/Face: atraumatic. Eyes: EOMI, no conjunctival erythema appreciated ENT: Moist Mucus Membranes Neck: Trachea midline, Supple 08:13 Cardiovascular: Regular rate and rhythm. No edema appreciated Respiratory: Normal respirations, no respiratory distress appreciated Abdomen/GI: Non distended, soft Back: Normal ROM 08:13 Chest/axilla: erythema along with crusting to the surgical incision site. 08:13 Skin: erythema and crusting noted to the chest. 08:13 Neuro: Orientation: is normal, Mentation: is normal, Memory: is normal. 08:13 Psych: Behavior/mood is pleasant, cooperative. Vital Signs: 08:19 BP 159 / 101; Pulse 95; Resp 18 S; Pulse Ox 100% on R/A; Weight 72.57 kg; Height 5 ft. iw 3 in. (160.02 cm); Pain 0/10; 08:19 Body Mass Index 28.34 (72.57 kg, 160.02 cm) iw MDM: 08:13 Patient medically screened. [facility] 08:17 Data reviewed: vital signs, nurses notes. Counseling: I had a detailed discussion with [facility] the patient and/or guardian regarding: the historical points, exam findings, and any diagnostic results supporting the discharge/admit diagnosis, the need for further work-up and treatment in the hospital. ED course: I discussed the patient with Dr. Koehler whom advised to admit the patient for surgical debridement. . 08:38 ED course: I discussed the patient with Dr. Samson whom accepted admission. . [facility] 07/08 08:15 Order name: CBC with Diff; Complete Time: 09:55 [facility] 07/08 08:15 Order name: CMP; Complete Time: 09:55 [facility] 07/08 08:15 Order name: Saline Lock; Complete Time: 08:39 [facility] Administered Medications: No medications were administered Disposition: 11:04 Co-signature as Attending Physician, Alexis Acevedo MD. rn Disposition: 07/08/19 08:32 Hospitalization ordered by Edyta Samson for Inpatient Admission. Preliminary diagnosis are Failed Outpatient Therapy, Cellulitis of the breast. - Bed requested for Telemetry/MedSurg (Inpatient). - Status is Inpatient Admission. ph - Condition is Stable. - Problem is new. - Symptoms are unchanged. UTI on Admission? No Signatures: Dispatcher [employer] Yves Wu PA PA jmm Williams, Irene, RN RN iw Nieto, Roman, MD MD rn Hall, Patricia, RN RN ph Corrections: (The following items were deleted from the chart) 09:03 08:32 Hospitalization Ordered by Edyta Samson MD for Inpatient Admission. Preliminary ph diagnosis is Failed Outpatient Therapy; Cellulitis of the breast. Bed requested for Telemetry/MedSurg (Inpatient). Status is Inpatient Admission. Condition is Stable. Problem is new. Symptoms are unchanged. UTI on Admission? No. chandu
--- NOTE | 2019-07-08 08:33 | ER ---
Nurse's Notes [facility] Name: Eva De La Paz Age: 58 yrs Sex: Female : 1960 Arrival Date: 07/08/2019 Time: 08:06 Bed 15 Private MD: Diagnosis: Failed Outpatient Therapy;Cellulitis of the breast Presentation: 07/08 08:10 Presenting complaint: Patient states: was sent by Dr. Koehler to be admitted for iw debridement of mastectomy surgical site. Care prior to arrival: None. 08:10 Acuity: CM 3 iw 08:12 Transition of care: patient was not received from another setting of care. Onset of ph symptoms was July 08, 2019. Risk Assessment: Do you want to hurt yourself or someone else? Patient reports no desire to harm self or others. Initial Sepsis Screen: Does the patient meet any 2 criteria? No. Patient's initial sepsis screen is negative. Does the patient have a suspected source of infection? No. Patient's initial sepsis screen is negative. 08:12 Method Of Arrival: Ambulatory ph Historical: - Allergies: 08:11 amlodipine; ph 08:11 Amoxicillin; ph 08:11 Azithromycin; ph 08:11 Cefuroxime; ph 08:11 Cephalexin; ph 08:11 Ciprofloxacin; ph 08:11 Duloxetine; ph 08:11 estrogens, conjugated; ph 08:11 Hydrochlorothiazide; ph 08:11 irbesartan; ph 08:11 Levofloxacin; ph 08:11 Lisinopril; ph 08:11 Medroxyprogesterone; ph 08:11 meloxicam; ph 08:11 nebivolol; ph 08:11 tramadol; ph 08:11 vilazodone; ph - Home Meds: 08:11 clonidine HCl 0.1 mg Oral tab 1 tab 2 times per day [Active]; ph - PMHx: 08:11 breast cancer; Hypertension; ph - PSHx: 08:11 right mastectomy; ph - Immunization history:: Adult Immunizations unknown. - Social history:: Smoking status: Patient/guardian denies using tobacco. - Ebola Screening: : No symptoms or risks identified at this time. Screenin:09 Abuse screen: Denies threats or abuse. Denies injuries from another. Nutritional ph screening: No deficits noted. Nutritional screening: No deficits noted. Tuberculosis screening: No symptoms or risk factors identified. Fall Risk None identified. Assessment: 08:54 General: Appears in no apparent distress. comfortable, well groomed, Behavior is ph cooperative, appropriate for age, anxious. Pain: Denies pain. Neuro: Level of Consciousness is awake, alert, obeys commands, Oriented to person, place, time, situation. Cardiovascular: Capillary refill < 3 seconds in bilateral fingers Patient's skin is warm and dry. Respiratory: Airway is patent Respiratory effort is even, unlabored, Respiratory pattern is regular, symmetrical. GI: No signs and/or symptoms were reported involving the gastrointestinal system. Derm: Skin is healthy with good turgor, Skin is pink, warm \T\ dry. Musculoskeletal: Circulation, motion, and sensation intact. Range of motion: intact in all extremities. 08:57 Reassessment: Patient appears in no apparent distress at this time. Patient and/or ph family updated on plan of care and expected duration. Pain level reassessed. Patient is alert, oriented x 3, equal unlabored respirations, skin warm/dry/pink. 09:02 Reassessment: Patient appears in no apparent distress at this time. Patient and/or ph family updated on plan of care and expected duration. Pain level reassessed. Patient is alert, oriented x 3, equal unlabored respirations, skin warm/dry/pink. OR nurse at bedside, pt taken to surgery. Vital Signs: 08:19 BP 159 / 101; Pulse 95; Resp 18 S; Pulse Ox 100% on R/A; Weight 72.57 kg; Height 5 ft. iw 3 in. (160.02 cm); Pain 0/10; 08:19 Body Mass Index 28.34 (72.57 kg, 160.02 cm) ED Course: 08:06 Patient arrived in ED. mr 08:07 Yves Lau PA is PHCP. jmm 08:07 Alexis Acevedo MD is Attending Physician. [facility] 08:08 Rissa Cheung, ROLLY is Primary Nurse. ph 08:12 Arm band placed on Patient placed in an exam room, on a stretcher. ph 08:13 Patient has correct armband on for positive identification. Bed in low position. Call ph light in reach. Side rails up X 1. Pulse ox on. NIBP on. Door closed. Noise minimized. Warm blanket given. Head of bed elevated. 08:19 Triage completed. iw 08:31 Edyta Samson MD is Hospitalizing Provider. [facility] 08:43 Inserted saline lock: 22 gauge in left antecubital area, using aseptic technique. Blood ph collected. 09:02 No provider procedures requiring assistance completed. Patient admitted, IV remains in ph place. Administered Medications: No medications were administered Outcome: 08:32 Decision to Hospitalize by Provider. [facility] 09:02 Admitted to OR accompanied by nurse, family with patient, via wheelchair, with chart. ph 09:02 Condition: stable 09:02 Instructed on the need for admit. 09:03 Patient left the ED. ph Signatures: Yves Lau PA PA jmm Rivera, Mary mr Williams, Irene, RN RN iw Rissa Cheung RN RN ph
[2019-07-08 08:41] LABS: Absolute Lymphocytes (CBC) 0.7 K/uL (0.7-4.9); Basophils % 0.7 % (0-1.3); Hematocrit 30.9 % (36.0-45.0); Lymphocytes % 15.6 % (15.3-44.8); MPV 8.4 fL (7.6-11.3); RBC Red Blood Cell Count 3.42 M/uL (3.86-4.86)
[2019-07-08 08:57] LABS: Albumin 2.9 g/dL (3.4-5.0); Bilirubin Total 0.3 mg/dL (0.2-1.0); Potassium 3.5 mmol/L (3.5-5.1); Protein, Total 7.9 g/dL (6.4-8.2)
[2019-07-08] MEDS ORDERED: Ringers Lactate 1,000 ML IV ONE (09:14)
[2019-07-08] MEDS ORDERED: NA CHLORIDE 0.9% 1,000 ML IV SCH (09:14)
[2019-07-08] MEDS ORDERED: MIDAZOLAM HCL 2 MG/2 ML INJ ONE ×2 (09:17→09:30)
[2019-07-08] MEDS ORDERED: PROPOFOL 200 MG/20 ML VIAL IV ONE (09:17)
[2019-07-08] MEDS ORDERED: LIDOCAINE 1% MPF 5 ML VIAL ONE (09:17)
[2019-07-08] MEDS ORDERED: FENTANYL CITR 100 MCG/2 ML ONE ×2 (09:17→10:35)
[2019-07-08] MEDS ORDERED: CEFAZOLIN/SWI 1gm 1 GM/10 ML SYR ONE (09:34)
[2019-07-08] MEDS ORDERED: ONDANSETRON 4 MG/2 ML VIAL ONE (10:07)
[2019-07-08] MEDS ORDERED: MINERAL OIL, LITE 10 ML VIAL ONE (10:39)
[2019-07-08] MEDS ORDERED: Mastisol Adhesive Liq ONE (11:05)
[2019-07-08] MEDS ORDERED: HYDROMORPHONE HCL 1 MG/ML INJ ONE (11:35)
[2019-07-08] MEDS ORDERED: GLYCOPYRROLATE 0.2 MG/ML SYR ONE (12:29)
[2019-07-08] MEDS ORDERED: EPHEDRINE SULF 50 MG/ML VIAL ONE (12:36)
[2019-07-08] MEDS ORDERED: NS 0.9% VIAL 0 ML ONE (12:37)
[2019-07-08 12:52] VITALS: TEMP 97.9
[2019-07-08 12:53] VITALS: BP 154/72; O2SAT 96
--- NOTE | 2019-07-09 09:17 | OP ---
Surgeon: Javier Koehler MD Preoperative Diagnoses: Open wound of the right breast status post mastectomy reconstruction, open wound of the abdomen status post donor site of a TRAM. Postoperative Diagnoses: Open wound of the right breast status post mastectomy reconstruction, open wound of the abdomen status post donor site of a TRAM. Procedure Performed: Debridement of skin and subcutaneous tissues of the abdomen and right breast with skin graft to the right breast and flap advancement closure of the abdomen. Anesthesia: General. Description Of Procedure: After satisfactory induction of general anesthesia, the chest, abdomen, and right thigh area was prepped with Betadine scrub, Betadine paint, dry sterile drapes applied in the usual manner. The breast was approached first. A scalpel was used to excise skin and subcu tissue over the 9 o'clock and 11 o'clock position of the right breast. These were incised and then were jet lavaged and irrigated with about 3 liters of betadine irrigation. The transverse incision was used to close the donor site. The abdomen was elliptically incised, approximately 25 cm long x 5 cm wide. This was curetted and jet lavaged, and irrigated. Abdominal site was closed with 3-0 Vicryl subcu , 3-0 Prolene vertical mattress sutures . Then the right posterior lateral thigh was used to harvest a skin graft with a Brennan dermatome and then opsite was used to cover the donor. The graft was held in place with a stent of tony and then a stent of Xeroform and tony. Dressings of 4x4s stapled to the abdomen, 4x4s and tape over the right breast. The patient tolerated the procedure well. Estimated blood loss was about 50 ml GH/MODL Voice ID: [id number] Report ID: [id number] [facility] HOSPITALAime
== END 2019-07-08 12:59 | disposition home or self-care (01) | DRG 999 ==
LOC: ER 08:01 → ERHOLD 08:43
PROVIDERS: ADMIT Family Medicine; ATTEND Specialist
PROC: 0HX7XZZ Transfer Abdomen Skin, External Approach (ICD-10-PCS; 2019-07-08)
PROC: 0HBHXZZ Excision of Right Upper Leg Skin, External Approach (ICD-10-PCS; 2019-07-08)
PROC: [UNRECOGNIZED PROCEDURE] (principal; 2019-07-08 09:30)
DX: Y83.4 Other reconstructive surgery as the cause of abnormal reaction of the patient, or of later complication, without mention of misadventure at the time of the procedure (principal); I10 Essential (primary) hypertension; Z85.3 Personal history of malignant neoplasm of breast
CPT/HCPCS: 36415; 80053; 85025; 88304; 88305; 99285; J0690; J1170; J2250; J2405; J2704; J3010

== ENCOUNTER 2024-06-12 11:37 | Emergency (ER) | payer OTHER ==
--- NOTE | 2024-06-12 13:03 | RAD REPORT ---
EXAM DESCRIPTION: US - Extremity Nonvascular Limited - 06/12/2024 12:52 pm CLINICAL HISTORY: Pain;Swelling COMPARISON: Breast Core BX w/US Guidance dated 05/02/2024 TECHNIQUE: Real-time sonographic evaluation of the area of interest was performed right chest region . FINDINGS: There appears to be a intermediate density collection present in the region of swelling al vignesh the right chest wall. This appears to demonstrate fluid fluid level likely representing a hematom a. Previously noted mass is again seen containing biopsy clip. Biopsy performed 05/02/2024 on this mass. There is no evidence of fluid or hemorrhage surrounding the mass.
--- NOTE | 2024-06-12 13:33 | EDPHYS ---
Physician Documentation [facility] Name: Eva De La Paz Age: 63 yrs Sex: Female : 1960 Arrival Date: 06/12/2024 Time: 11:37 Bed 14 Private MD: ED Physician Indio Damico HPI: 06/12 12:58 This 63 yrs old Female presents to ER via Ambulatory with complaints of [facility] Breast Problem. 12:58 The patient or guardian reports chest pain that is located primarily in the anterior nereida chest wall, right. Onset: 3 day(s) ago. The pain does not radiate. Associated signs and symptoms: The patient has no apparent associated signs or symptoms. The chest pain is described as right breast swelling. Duration: The patient or guardian reports multiple episodes, with no pattern. Modifying factors: The symptoms are alleviated by remaining still, the symptoms are aggravated by movement, palpation of area. Severity of pain: At its worst the pain was moderate in the emergency department the pain is unchanged. The patient has not experienced similar symptoms in the past. Historical: - Allergies: 11:49 amlodipine; iw 11:49 Azithromycin; iw 11:49 Amoxicillin; iw 11:49 Cephalexin; iw 11:49 estrogens; iw 11:49 hydrochlorothiazide; iw 11:49 Ciprofloxacin; iw 11:49 Cefuroxime; iw 11:49 Duloxetine; iw 11:49 irbesartan; iw 11:49 Levofloxacin; iw 11:49 Lisinopril; iw 11:49 Medroxyprogesterone; iw 11:49 meloxicam; iw 11:49 nebivolol; iw 11:49 tramadol; iw 11:49 vilazodone; iw - PMHx: 11:49 breast cancer; Hypertension; iw - Immunization history:: Adult Immunizations Flu vaccine is up to date. - Infectious Disease History:: Denies. - Social history:: Smoking status: Patient reports the use of cigarette tobacco products. ROS: 12:59 Constitutional: Negative for fever, chills, and weight loss, Eyes: Negative for injury, nereida pain, redness, and discharge, ENT: Negative for injury, pain, and discharge, Neck: Negative for injury, pain, and swelling, Cardiovascular: Negative for chest pain, palpitations, and edema, Respiratory: Negative for shortness of breath, cough, wheezing, and pleuritic chest pain, Abdomen/GI: Negative for abdominal pain, nausea, vomiting, diarrhea, and constipation, Back: Negative for injury and pain, : Negative for injury, bleeding, discharge, and swelling, MS/Extremity: Negative for injury and deformity, Neuro: Negative for headache, weakness, numbness, tingling, and seizure, Psych: Negative for depression, anxiety, suicide ideation, homicidal ideation, and hallucinations, Allergy/Immunology: Negative for hives, rash, and allergies, Endocrine: Negative for neck swelling, polydipsia, polyuria, polyphagia, and marked weight changes, Hematologic/Lymphatic: Negative for swollen nodes, abnormal bleeding, and unusual bruising, 12:59 Skin: Positive for swelling, of the right breast, Exam: 12:59 Constitutional: This is a well developed, well nourished patient who is awake, alert, nereida and in no acute distress. Head/Face: Normocephalic, atraumatic. Eyes: Pupils equal round and reactive to light, extra-ocular motions intact. Lids and lashes normal. Conjunctiva and sclera are non-icteric and not injected. Cornea within normal limits. Periorbital areas with no swelling, redness, or edema. ENT: Nares patent. No nasal discharge, no septal abnormalities noted. Tympanic membranes are normal and external auditory canals are clear. Oropharynx with no redness, swelling, or masses, exudates, or evidence of obstruction, uvula midline. Mucous membranes moist. Neck: Trachea midline, no thyromegaly or masses palpated, and no cervical lymphadenopathy. Supple, full range of motion without nuchal rigidity, or vertebral point tenderness. No Meningismus. Chest/axilla: Normal chest wall appearance and motion. Nontender with no deformity. No lesions are appreciated. Cardiovascular: Regular rate and rhythm with a normal S1 and S2. No gallops, murmurs, or rubs. Normal PMI, no JVD. No pulse deficits. Respiratory: Lungs have equal breath sounds bilaterally, clear to auscultation and percussion. No rales, rhonchi or wheezes noted. No increased work of breathing, no retractions or nasal flaring. Abdomen/GI: Soft, non-tender, with normal bowel sounds. No distension or tympany. No guarding or rebound. No evidence of tenderness throughout. Back: No spinal tenderness. No costovertebral tenderness. Full range of motion. Female : Normal external genitalia. MS/ Extremity: Pulses equal, no cyanosis. Neurovascular intact. Full, normal range of motion. Neuro: Awake and alert, GCS 15, oriented to person, place, time, and situation. Cranial nerves II-XII grossly intact. Motor strength 5/5 in all extremities. Sensory grossly intact. Cerebellar exam normal. Normal gait. Psych: Awake, alert, with orientation to person, place and time. Behavior, mood, and affect are within normal limits. 12:59 Skin: right breast swelling. Vital Signs: 11:45 BP 145 / 67; Pulse 62; Resp 16; Temp 98.6; Pulse Ox 97% ; Weight 69.85 kg; Height 5 ft. iw 5 in. ; Pain 0/10; 13:30 BP 148 / 99; Pulse 61; Resp 16 S; Pulse Ox 100% on R/A; kc6 11:45 Body Mass Index 25.63 (69.85 kg, 165.1 cm) iw 11:45 Pain Scale: Adult iw MDM: 11:52 Patient medically screened. nereida 13:00 Data reviewed: vital signs, nurses notes, radiologic studies, ultrasound. Consideration nereida of Admission/Observation Escalation of care including admission/observation considered. I considered the following discharge prescriptions or medication management in the emergency department Medications were administered in the Emergency Department. See MAR. Independent interpretation of the following test(s) in the Emergency Department Radiology Department Ultrasound: My interpretation is right breast. 06/12 12:17 Order name: US Extrmty Nonvasular Limited: right breast; Complete Time: 13:28 nereida Administered Medications: No medications were administered Disposition Summary: 06/12/24 13:32 Discharge Ordered Notes: Location: Home nereida Problem: new nereida Symptoms: have improved nereida Condition: Stable nereida Diagnosis - Postprocedural seroma of skin and subcutaneous tissue following other procedure nereida - Disorder of breast, unspecified nereida Followup: nereida - With: Private Physician - When: 2 - 3 days - Reason: Recheck today's complaints, Continuance of care, Re-evaluation by your physician Followup: nereida - With: Jaycob Rebollar MD - When: 1 - 2 days - Reason: Recheck today's complaints, Re-evaluation by your physician Followup: nereida - With: Marly Sharpe MD - When: 2 - 3 days - Reason: Recheck today's complaints, Continuance of care, Re-evaluation by your physician Discharge Instructions: - Discharge Summary Sheet nereida - Hematoma nereida - Hematoma, [id number] nereida - Seroma nereida Forms: - Medication Reconciliation Form nereida - Antibiotic Education nereida - Prescription Opioid Use nereida - Patient Portal Instructions nereida - Leadership Thank You Letter nereida Signatures: Dispatcher [employer] Indio Whatley MD MD cha Williams, Irene, RN RN iw
--- NOTE | 2024-06-12 13:33 | ER ---
Nurse's Notes [facility] Name: Eva De La Paz Age: 63 yrs Sex: Female : 1960 Arrival Date: 06/12/2024 Time: 11:37 Bed 14 Private MD: Diagnosis: Postprocedural seroma of skin and subcutaneous tissue following other procedure;Disorder of breast, unspecified Presentation: 06/12 11:45 Chief complaint: Patient states: hx of breast cancer diagnosed a couple weeks ago , was iw supposed to have PET scan today but got cancelled, two days her right breast swelled and is warm to touch and her stomach feels tight, she has a previous breast cancer surgery in 2019 in right breast. Pt sees Dr. Paige here at [facility] [[email or web address] Coronavirus screen: At this time, the client does not indicate any symptoms associated with coronavirus-19. Ebola Screen: No symptoms or risks identified at this time. Initial Sepsis Screen: Does the patient meet any 2 criteria? No. Patient's initial sepsis screen is negative. Does the patient have a suspected source of infection? No. Patient's initial sepsis screen is negative. Risk Assessment: Do you want to hurt yourself or someone else? Patient reports no desire to harm self or others. Onset of symptoms was June 10, 2024. 11:45 Method Of Arrival: Ambulatory iw 11:45 Acuity: CM 3 iw Historical: - Allergies: 11:49 amlodipine; iw 11:49 Azithromycin; iw 11:49 Amoxicillin; iw 11:49 Cephalexin; iw 11:49 estrogens; iw 11:49 hydrochlorothiazide; iw 11:49 Ciprofloxacin; iw 11:49 Cefuroxime; iw 11:49 Duloxetine; iw 11:49 irbesartan; iw 11:49 Levofloxacin; iw 11:49 Lisinopril; iw 11:49 Medroxyprogesterone; iw 11:49 meloxicam; iw 11:49 nebivolol; iw 11:49 tramadol; iw 11:49 vilazodone; iw - PMHx: 11:49 breast cancer; Hypertension; iw - Immunization history:: Adult Immunizations Flu vaccine is up to date. - Infectious Disease History:: Denies. - Social history:: Smoking status: Patient reports the use of cigarette tobacco products. Screenin:06 [facility] ED Fall Risk Assessment (Adult) History of falling in the last 3 months, kc6 including since admission No falls in past 3 months (0 pts) Confusion or Disorientation No (0 pts) Intoxicated or Sedated No (0 pts) Impaired Gait No (0 pts) Mobility Assist Device Used No (0 pt) Altered Elimination No (0 pt) Score/Fall Risk Level 0 - 2 = Low Risk. Abuse screen: Denies threats or abuse. Denies injuries from another. Nutritional screening: No deficits noted. Tuberculosis screening: No symptoms or risk factors identified. Assessment: 13:24 General: Appears in no apparent distress. comfortable, well groomed, well developed, kc6 Behavior is calm, cooperative, appropriate for age. Pain: Complains of pain in chest and right breast. Neuro: Level of Consciousness is awake, alert, obeys commands, Oriented to person, place, time, situation, Appropriate for age. Cardiovascular: Capillary refill < 3 seconds. Respiratory: Airway is patent Trachea midline Respiratory effort is even, unlabored, Respiratory pattern is regular, symmetrical. GI: No signs and/or symptoms were reported involving the gastrointestinal system. : No signs and/or symptoms were reported regarding the genitourinary system. EENT: No signs and/or symptoms were reported regarding the EENT system. Derm: Skin is intact, is healthy with good turgor, Skin is dry, Skin is normal, Skin temperature is warm Rash noted that is red, on right breast. Musculoskeletal: No signs and/or symptoms reported regarding the musculoskeletal system. Circulation, motion, and sensation intact. Capillary refill < 3 seconds, Range of motion: intact in all extremities. Vital Signs: 11:45 BP 145 / 67; Pulse 62; Resp 16; Temp 98.6; Pulse Ox 97% ; Weight 69.85 kg; Height 5 ft. iw 5 in. ; Pain 0/10; 13:30 BP 148 / 99; Pulse 61; Resp 16 S; Pulse Ox 100% on R/A; kc6 11:45 Body Mass Index 25.63 (69.85 kg, 165.1 cm) iw 11:45 Pain Scale: Adult iw ED Course: 11:40 Patient arrived in ED. mr 11:49 Triage completed. iw 11:50 Arm band placed on. iw 11:52 Indio Damico MD is Attending Physician. nereida 11:53 Jannette Majano, RN is Primary Nurse. kc6 12:06 Patient has correct armband on for positive identification. Placed in gown. Bed in low kc6 position. Call light in reach. Side rails up X 1. Pulse ox on. NIBP on. Door closed. Noise minimized. Lights dimmed. Warm blanket given. Pillow given. 12:53 US Extrmty Nonvasular Limited: right breast In Process Unspecified. EDIA 13:30 Jaycob Rebollar MD is Referral Physician. [facility] 13:32 Marly Sharpe MD is Referral Physician. [facility] 13:44 No provider procedures requiring assistance completed. Patient did not have IV access kc6 during this emergency room visit. Administered Medications: No medications were administered Medication: 13:44 VIS not applicable for this client. kc6 Outcome: 13:32 Discharge ordered by . [facility] 13:44 Discharged to home ambulatory, with family, kc6 13:44 Condition: good 13:44 Discharge instructions given to patient, family, Instructed on discharge instructions, follow up and referral plans. Demonstrated understanding of instructions, follow-up care, 13:44 Patient left the ED. kc6 Signatures: Dispatcher [employer] EDMS Indio Damico MD MD cha Rivera, Mary, Reg Reg mr Elissa Arias RN RN Jannette Hoffman, ROLLY RN kc6 Corrections: (The following items were deleted from the chart) 11:49 11:45 BP 145 / 67; Pulse 62bpm; Resp 16bpm; Temp 98.6F; iw iw
[2024-06-12 13:48] VITALS: TEMP 98.6
[2024-06-12 13:50] VITALS: BP 148/99; O2SAT 100
--- OUTSIDE RECORDS SUMMARY | 2024-06-13 09:40 | XMS REPORT | Continuity of Care Document ---
Author Name Unknown Address [address] [facility]. [address]. [address] [place] [address] [facility] Address [address] [facility] Anthony. [address] [place] [address] Care Team Providers Care Controller Operations And Hr Manager Name Role Phone Kait Peoples Attending Clinician Unavailable SHELTON_Robert Attending Clinician Unavailable THADDEUS LION Attending Clinician Unavailable KAIT PEOPLES Attending Clinician Unavailable KATYA BOOTH Attending Clinician Unavailable ELADIO RUDOLPH Attending Clinician Unavailab yuliet PEOPLES_Robert Admitting Clinician Unavailable Payers Payer Name Policy Type Policy Number Effective Date Expirati on Date Source [employer] (MEDICARE REPLACEMENT/ADVANT AGE - PPO) [id number] 2023 00:00:00 [place] [id number] 2022 00:00:00 Problems Condition Name Condition Details Condition Category Status Onset Date Resolution Date Last Treatment Date Treating Clinician Comments Source Mass of axilla Mass of Axilla Problem Active 04-22 00:00: 00 [facility] Allergic urticaria Allergic Urticaria Problem Active 5-06 00:00: 00 [facility] Acute pharyngiti s Acute Pharyngiti s Problem Active 2-05 00:00: 00 [facility] Trochanter ic bursitis of left hip Trochanter ic Bursitis of Left Hip Problem Active 6-26 00:00: 00 [facility] Localized eruption of skin Localized Eruption of Skin Problem Active 4-10 00:00: 00 [facility] Seasonal allergic rhinitis Seasonal Allergic Rhinitis Problem Active 1-04 00:00: 00 [facility] Onychomyco sis of toenails Onychomyco sis of Toenails Problem Active 6-30 00:00: 00 [facility] Pain of left knee joint Pain of Left Knee Joint Problem Active 6-08 00:00: 00 [facility] Anxiety Anxiety Problem Active 4-20 00:00: 00 [facility] Low back pain Low Back Pain Problem Active 4-06 00:00: 00 [facility] Upper respirator y infection Upper Respirator y Infection Problem Active 3-17 00:00: 00 [facility] Long-term drug therapy Long-term Drug Therapy Problem Active 3-17 00:00: 00 [facility] Indigestio n Indigestio n Problem Active 2020-10 2-06 00:00: 00 [facility] Malaise Malaise Problem Active 4-06 00:00: 00 [facility] Essential hypertensi on Essential Hypertensi on Problem Active 3-04 00:00: 00 [facility] Adult health examinatio n Adult Health Examinatio n Problem Active 2-18 [facility]: [facility] Allergies, Adverse Reactions, Alerts Allergy Name Allergy Type Status Severity Reaction(s) Onset Date Inactive Date Treating Clinician Comments Source Hydrochl orothiaz cinthya Allergy to substanc e Active [facility] Melrosanne m Allergy to substanc e Active Hives [facility] Social History Smoking Status Start Date Stop Date Source Heavy Tobacco Smoker [facility] Medications Ordered Medication Name Filled Medication Name Start Date Stop Date Current Medication? Ordering Clinician Indication Dosage Frequency Signature (SIG) Comments Components Source clonidine HCl 0.3 mg tablet TAKE 1 TABLET BY MOUTH THREE TIMES DAILY clonidine HCl 0.3 mg tablet TAKE 1 TABLET BY MOUTH THREE TIMES DAILY No clonidine HCl 0.3 mg tablet TAKE 1 TABLET BY MOUTH THREE TIMES DAILY [facility] hydralazine 50 mg tablet Take 1 tablet 3 times a day by oral route. hydralazine 50 mg tablet Take 1 tablet 3 times a day by oral route. No 1 TID hydralazin e 50 mg tablet Take 1 tablet 3 times a day by oral route. [facility] alprazolam 0.25 mg tablet TAKE 1 TABLET BY MOUTH EVERY 6 TO 8 HOURS NEEDED alprazolam 0.25 mg tablet TAKE 1 TABLET BY MOUTH EVERY 6 TO 8 HOURS NEEDED No alprazolam 0.25 mg tablet TAKE 1 TABLET BY MOUTH EVERY 6 TO 8 HOURS NEEDED [facility] metoprolol succinate ER 50 mg tablet,exte nded release 24 hr TAKE 1 TABLET BY MOUTH EVERY DAY metoprolol succinate ER 50 mg tablet,exte nded release 24 hr TAKE 1 TABLET BY MOUTH EVERY DAY No metoprolol succinate ER 50 mg tablet,ext ended release 24 hr TAKE 1 TABLET BY MOUTH EVERY DAY [facility] hydrocortis one 2.5 % topical cream APPLY THIN LAYER TOPICALLY TO THE AFFECTED AREA TWICE DAILY hydrocortis one 2.5 % topical cream APPLY THIN LAYER TOPICALLY TO THE AFFECTED AREA TWICE DAILY No hydrocorti sone 2.5 % topical cream APPLY THIN LAYER TOPICALLY TO THE AFFECTED AREA TWICE DAILY [facility] aspirin 81 mg tablet,talib yed release Take 1 tablet every day by oral route. aspirin 81 mg tablet,talib yed release Take 1 tablet every day by oral route. No 1 Q1D aspirin 81 mg tablet,del ayed release Take 1 tablet every day by oral route. [facility] citalopram 10 mg tablet TAKE 1 TABLET BY MOUTH EVERY DAY citalopram 10 mg tablet TAKE 1 TABLET BY MOUTH EVERY DAY No citalopram 10 mg tablet TAKE 1 TABLET BY MOUTH EVERY DAY [facility] Immunizations Ordered Immunization Name Filled Immunization Name Date Status Comments Source influenza, injectable, quadrivalent, preservative free - microgram(s) influenza, injectable, quadrivalent, preservative free - microgram(s) Unknown Completed [facility] Tdap Tdap Unknown Completed [facility] Influenza, injectable, MDCK, preservative free, quadrivalent Influenza, injectable, MDCK, preservative free, quadrivalent Unknown Completed [facility] Vital Signs Vital Name Observation Time Observation Value Comments S ource Body Weight 2024-04-22 00:00:00 2483.2 [oz_av] [facility] BMI (Body Mass Index) 2024-04-22 00:00:00 28.4 kg/m2 [facility] BP Systolic 2024-04-22 00:00:00 144 mm[Hg] [facility] BP Diastolic 2024-04-22 00:00:00 73.99 mm[Hg] [facility] Height 2024-04-22 00:00:00 62 [in_i] [facility] BP Systolic 2024-04-07 00:00:00 128 mm[Hg] [facility] Body Weight 2024-04-07 00:00:00 2512 [oz_av] [facility] BP Diastolic 2024-04-07 00:00:00 62 mm[Hg] [facility] BMI (Body Mass Index) 2024-04-07 00:00:00 28.7 kg/m2 [facility] Height 2024-04-07 00:00:00 62 [in_i] [facility] BP Systolic 2024-03-03 00:00:00 144 mm[Hg] [facility] Body Weight 2024-03-03 00:00:00 2518.4 [oz_av] [facility] BMI (Body Mass Index) 2024-03-03 00:00:00 28.8 kg/m2 [facility] Height 2024-03-03 00:00:00 62 [in_i] [facility] BP Diastolic 2024-03-03 00:00:00 70 mm[Hg] [facility] Body Weight 2023-12-03 00:00:00 2480 [oz_av] [facility] Height 2023-12-03 00:00:00 62 [in_i] [facility] BP Systolic 2023-12-03 00:00:00 130 mm[Hg] [facility] BP Diastolic 2023-12-03 00:00:00 70 mm[Hg] [facility] BMI (Body Mass Index) 2023-12-03 00:00:00 28.3 kg/m2 [facility] BP Diastolic 2023-07-23 00:00:00 60 mm[Hg] [facility] Height 2023-07-23 00:00:00 62 [in_i] [facility] Body Weight 2023-07-23 00:00:00 2444.8 [oz_av] [facility] BMI (Body Mass Index) 2023-07-23 00:00:00 27.9 kg/m2 [facility] BP Systolic 2023-07-23 00:00:00 110 mm[Hg] [facility] BP Diastolic 2023-04-23 00:00:00 62 mm[Hg] [facility] Height 2023-04-23 00:00:00 62 [in_i] [facility] BMI (Body Mass Index) 2023-04-23 00:00:00 28.2 kg/m2 [facility] BP Systolic 2023-04-23 00:00:00 110 mm[Hg] [facility] Body Weight 2023-04-23 00:00:00 2470.4 [oz_av] [facility] BP Diastolic 2023-03-05 00:00:00 80 mm[Hg] [facility] BP Systolic 2023-03-05 00:00:00 140 mm[Hg] [facility] Body Weight 2023-03-05 00:00:00 2518.4 [oz_av] [facility] BP Diastolic 2023-02-26 00:00:00 60 mm[Hg] [facility] BP Systolic 2023-02-26 00:00:00 99 mm[Hg] [facility] Body Weight 2023-02-26 00:00:00 2505.6 [oz_av] [facility] BP Diastolic 2023-02-05 00:00:00 80 mm[Hg] [facility] BP Systolic 2023-02-05 00:00:00 133 mm[Hg] [facility] Body Weight 2023-02-05 00:00:00 2505.6 [oz_av] [facility] BP Diastolic 2022-11-01 00:00:00 70 mm[Hg] [facility] BP Systolic 2022-11-01 00:00:00 118 mm[Hg] [facility] Body Weight 2022-11-01 00:00:00 2620.8 [oz_av] [facility] BP Diastolic 2022-09-28 00:00:00 70 mm[Hg] [facility] BP Systolic 2022-09-28 00:00:00 130 mm[Hg] [facility] Body Weight 2022-09-28 00:00:00 2656 [oz_av] [facility] BP Diastolic 2022-08-31 00:00:00 92 mm[Hg] [facility] BP Systolic 2022-08-31 00:00:00 140 mm[Hg] [facility] Body Weight 2022-08-31 00:00:00 2748.8 [oz_av] [facility] BP Diastolic 2022-07-20 00:00:00 78 mm[Hg] [facility] BP Systolic 2022-07-20 00:00:00 140 mm[Hg] [facility] Body Weight 2022-07-20 00:00:00 2694.4 [oz_av] [facility] BP Diastolic 2022-06-12 00:00:00 82 mm[Hg] [facility] BP Systolic 2022-06-12 00:00:00 158 mm[Hg] [facility] Body Weight 2022-06-12 00:00:00 2672 [oz_av] [facility] BP Diastolic 2022-04-27 00:00:00 74 mm[Hg] [facility] BP Systolic 2022-04-27 00:00:00 140 mm[Hg] [facility] Body Weight 2022-04-27 00:00:00 2720 [oz_av] [facility] BP Diastolic 2022-04-05 00:00:00 88 mm[Hg] [facility] BP Systolic 2022-04-05 00:00:00 170 mm[Hg] [facility] Body Weight 2022-04-05 00:00:00 2732.8 [oz_av] [facility] BP Diastolic 2022-03-22 00:00:00 80 mm[Hg] [facility] BP Systolic 2022-03-22 00:00:00 140 mm[Hg] [facility] Body Weight 2022-03-22 00:00:00 2720 [oz_av] [facility] BP Diastolic 2022-02-22 00:00:00 82 mm[Hg] [facility] BP Systolic 2022-02-22 00:00:00 130 mm[Hg] [facility] Body Weight 2022-02-22 00:00:00 2745.6 [oz_av] [facility] BP Diastolic 2022-02-15 00:00:00 80 mm[Hg] [facility] BP Systolic 2022-02-15 00:00:00 150 mm[Hg] [facility] Body Weight 2022-02-15 00:00:00 2723.2 [oz_av] [facility] BP Diastolic 2022-02-01 00:00:00 98 mm[Hg] [facility] BP Systolic 2022-02-01 00:00:00 158 mm[Hg] [facility] Body Weight 2022-02-01 00:00:00 2780.8 [oz_av] [facility] BP Diastolic 2022-01-12 00:00:00 100 mm[Hg] [facility] BP Systolic 2022-01-12 00:00:00 180 mm[Hg] [facility] Body Weight 2022-01-12 00:00:00 2784 [oz_av] [facility] BP Diastolic 2021-10-03 00:00:00 88 mm[Hg] [facility] BP Systolic 2021-10-03 00:00:00 178 mm[Hg] [facility] Body Weight 2021-10-03 00:00:00 2704 [oz_av] [facility] BP Diastolic 2021-03-29 00:00:00 82 mm[Hg] [facility] BP Systolic 2021-03-29 00:00:00 150 mm[Hg] [facility] Body Weight 2021-03-29 00:00:00 2803.2 [oz_av] [facility] BP Diastolic 2021-03-15 00:00:00 80 mm[Hg] [facility] BP Systolic 2021-03-15 00:00:00 150 mm[Hg] [facility] Body Weight 2021-03-15 00:00:00 2761.6 [oz_av] [facility] BP Diastolic 2021-02-01 00:00:00 100 mm[Hg] [facility] BP Systolic 2021-02-01 00:00:00 194 mm[Hg] [facility] Body Weight 2021-02-01 00:00:00 2752 [oz_av] [facility] Procedures Procedure Date / Time Performed Performing Clinician Source US, axilla 2024-04-22 00:00:00 [facility] MAMMO, diagnostic, digital, unilateral 2023-02-05 00:00:00 [facility] electrocardiogram 2021-10-03 00:00:00 [facility] Reconstruction of Right Breast 2019-01-27 00:00:00 [facility] Bilateral Mastectomy 2019-01-27 00:00:00 [facility] Breast Biopsy 2018-12-27 00:00:00 [facility] Encounters Start Date/Time End Date/Time Encounter Type Admission Type Attending [facility] Care Facility Care Department Encounter ID Source 2024-06-10 16:20:01 Outpatient Kait Peoples [facility] [id number] [facility] 2021-11-23 11:20:22 Outpatient Kait Peoples [facility] [id number] [facility] 2024-04-22 00:00:00 2024-04-22 00:00:00 Kait Peoples MD: Jody Murphy [address], [address], [place] [address] , Ph. [facility], DR[facility] PEOPLES [id number] [facility] 2024-04-07 00:00:00 2024-04-07 00:00:00 Kait Peoples MD: Jody Murphy, [address], [place] [address] , Ph. [facility], [facility] PEOPLES [id number] [facility] 2024-03-03 00:00:00 2024-03-03 00:00:00 Kait Peoples MD: Jody Murphy [address], [address], [place] [address] , Ph. [facility], [facility] PEOP[facility] [id number] [facility] 2024-02-25 00:00:00 2024-02-25 00:00:00 Kait Peoples MD: Jody Murphy, [address], [place] [address] , Ph. [facility] PE[facility] [id number] [facility] [facility] 2023-12-03 00:00:00 2023-12-03 00:00:00 Outpatient SHELTON_A [facility] [id number] [facility] 2023-12-03 00:00:00 2023-12-03 00:00:00 Kait Peoples MD: Jody Murphy, [address], [place] [address] , Ph. [facility] [id number] [facility] 2023-09-26 12:45:00 2023-09-26 12:45:00 Outpatient SHELLY AYADTHADDEUS [facility] [id number] [facility] 2023-07-23 00:00:00 2023-07-23 00:00:00 Outpatient SHELTON_Robert [facility] [id number] [facility] 2023-07-23 00:00:00 2023-07-23 00:00:00 Kait Peoples MD: Jody Murphy, [address], [place] [address] , Ph. [facility] [id number] [facility] 2023-04-23 00:00:00 2023-04-23 00:00:00 Outpatient SHELTON_A [facility] [id number] [facility] 2023-04-23 00:00:00 2023-04-23 00:00:00 Kait Peoples MD: Jody Murphy, [place] [address] , Ph. [facility] [id number] [facility] 2023-03-05 00:00:00 2023-03-05 00:00:00 Outpatient SHELTON_A [facility] [id number] [facility] 2023-03-05 00:00:00 2023-03-05 00:00:00 Kait Peoples MD: Jody Murphy, [address], [place] [address] , Ph. [facility] [id number] [facility] 2023-02-26 00:00:00 2023-02-26 00:00:00 Outpatient SHELTON_A [facility] [id number] [facility] 2023-02-26 00:00:00 2023-02-26 00:00:00 Kait Peoples MD: Jody Murphy, [address], [place] [address] , Ph. [facility] [id number] [facility] 2023-02-12 12:56:00 2023-02-12 12:56:00 Outpatient KAIT BYRNE [facility] [id number] [facility] 2023-02-05 00:00:00 2023-02-05 00:00:00 Outpatient SHELTON_A [facility] [id number] [facility] 2023-02-05 00:00:00 2023-02-05 00:00:00 Kait Peoples MD: Jody Murphy, [address], [place] [address] , Ph. [facility] [id number] [facility] 2022-11-02 00:00:00 2022-11-02 00:00:00 Outpatient KEFFER_A [facility] [id number] [place] [facility] 2022-11-01 00:00:00 2022-11-01 00:00:00 Outpatient KEFFER_A [facility] [id number] [facility] 2022-11-01 00:00:00 2022-11-01 00:00:00 Kait Peoples MD: Elio [address], [place] [address] , Ph. [facility] [id number] [facility] 2022-09-28 00:00:00 2022-09-28 00:00:00 Outpatient KEFFER_A [facility] [id number] [facility] 2022-09-28 00:00:00 2022-09-28 00:00:00 Kait Peoples MD: Elio [address], [place] [address] , Ph. [facility] [id number] [facility] 2022-09-12 16:33:00 2022-09-12 19:15:00 emergency [id number] 2022-09-12 16:33:00 2022-09-12 19:15:00 Emergency ER KATYA BOOTH [facility] [id number] [facility] 2022-09-11 00:00:00 2022-09-11 00:00:00 Outpatient KEFFER_A [facility] [id number] [place] [facility] 2022-08-31 00:00:00 2022-08-31 00:00:00 Outpatient KEFFER_A [facility] [id number] [facility] [facility] 2022-08-31 00:00:00 2022-08-31 00:00:00 Kait Peoples MD: Jody Murphy, [address], [place] [address] , Ph. [facility] [id number] [place] [facility] 2022-07-20 00:00:00 2022-07-20 00:00:00 Outpatient KEFFER_A [facility] [id number] [place] [facility] 2022-07-20 00:00:00 2022-07-20 00:00:00 Kait Peoples MD: Jody Murphy, [address], [place] [address] , Ph. [facility] [id number] [place] [facility] 2022-06-12 00:00:00 2022-06-12 00:00:00 Outpatient KEFFER_A [facility] [id number] [place] [facility] 2022-06-12 00:00:00 2022-06-12 00:00:00 Kait Peoples MD: Jody Murphy, [address], [place] [address] , Ph. [facility] [id number] [place] [facility] 2022-06-12 00:00:00 2022-06-12 00:00:00 Outpatient Shelton Kait Paul [facility] [id number] 2022-06-12 00:00:00 2022-06-12 00:00:00 Outpatient Shelton Kait Paul [facility] [id number] 2022-04-27 05:07:00 2022-04-27 05:07:00 Outpatient KEFFER_A [facility] [id number] [facility] 2022-04-27 00:00:00 2022-04-27 00:00:00 Kait Peoples MD: Elio Jose, [address], [place] [address] , Ph. [facility] [id number] [facility] 2022-04-27 00:00:00 2022-04-27 00:00:00 Outpatient Kait Peoples [facility] [id number] 2022-04-05 04:05:00 2022-04-05 04:05:00 Outpatient SHELTON_A [facility] [id number] [facility] 2022-04-05 00:00:00 2022-04-05 00:00:00 Kait Peoples MD: Jody Murphy [address], [place] [address] , Ph. [facility] [id number] [facility] 2022-04-05 00:00:00 2022-04-05 00:00:00 Outpatient Kait Peoples [facility] [id number] 2022-03-22 12:16:00 2022-03-22 12:16:00 Outpatient KEFFER_A [facility] [id number] [facility] 2022-03-22 00:00:00 2022-03-22 00:00:00 Kait Peoples MD: Jody Murphy, [place] [address] , Ph. [facility], [facility] [id number] [facility] 2022-03-22 00:00:00 2022-03-22 00:00:00 Outpatient Kait Peoples [facility] [id number] 04:29:00 2022-02-22 04:29:00 Outpatient SHELTON_Robert [facility] [id number] [facility] 2022-02-22 00:00:00 2022-02-22 00:00:00 Kait Peoples MD: Jody Murphy, [place] [address] , Ph. [facility] [id number] [facility] 2022-02-22 00:00:00 2022-02-22 00:00:00 Outpatient Kait Peoples [facility] [id number] 2022-02-15 05:48:00 2022-02-15 05:48:00 Outpatient KEFFER_A [facility] [id number] [facility] 2022-02-15 00:00:00 2022-02-15 00:00:00 Kait Peoples MD: Jody Murphy, [place] [address] , Ph. [facility], [facility] [id number] [facility] 2022-02-15 00:00:00 2022-02-15 00:00:00 Outpatient Kait Peoples [facility] [id number] 2022-02-01 04:08:00 2022-02-01 04:08:00 Outpatient SHELTON_A [facility] [id number] [facility] 2022-02-01 00:00:00 2022-02-01 00:00:00 Kait Peoples MD: Elio Jose [facility] [address], [place] [address] , Ph. [facility] [id number] [facility] 2022-02-01 00:00:00 2022-02-01 00:00:00 Outpatient Kait Peoples [facility] [id number] 2022-01-31 11:51:00 2022-01-31 11:51:00 Outpatient KEFFER_A [facility] [id number] [facility] 2022-01-12 04:35:00 2022-01-12 04:35:00 Outpatient KEFFER_A [facility] [id number] [facility] 2022-01-12 00:00:00 2022-01-12 00:00:00 Kait Peoples MD: Elio Jose [facility] [address], [place] [address] , Ph. [facility] [facility], [facility] [id number] [facility] 2022-01-12 00:00:00 2022-01-12 00:00:00 Outpatient Kait Peoples [facility] [id number] 2022-01-12 00:00:00 2022-01-12 00:00:00 Outpatient Kait Peoples [facility] [id number] 2021-11-17 06:56:00 2021-11-17 06:56:00 Outpatient KEFFER_A [facility] [id number] [facility] 2021-10-25 09:01:00 2021-10-25 09:01:00 Outpatient THADDEUS HERNANDEZ [facility] [id number] [facility] 2021-10-03 02:09:00 2021-10-03 02:09:00 Outpatient KEFFER_A [facility] [id number] [facility] 2021-10-03 00:00:00 2021-10-03 00:00:00 Kait Peoples MD: Jody Murphy, [address], [place] [address] , Ph. [facility], [address] [id number] [facility] 2021-10-03 00:00:00 2021-10-03 00:00:00 Outpatient Kait Peoples [facility] [id number] 2021-03-29 10:54:00 2021-03-29 10:54:00 Outpatient SHELTON_A [facility] [id number] [facility] 2021-03-29 00:00:00 2021-03-29 00:00:00 Kait Peoples MD: Jody Murphy [address], [address], [place] [address] , Ph. [facility], [address] [facility] [id number] [facility] 2021-03-29 00:00:00 2021-03-29 00:00:00 Outpatient Kait Peoples [facility] [id number] 2021-03-15 10:55:00 2021-03-15 10:55:00 Outpatient SHELTON_A [facility] [id number] 2021-03-15 00:00:00 2021-03-15 00:00:00 Kait Peoples MD: Jody Murphy B, [place] [address] , Ph. [facility], [address] [id number] [facility] 2021-03-15 00:00:00 2021-03-15 00:00:00 Outpatient Kait Peoples [facility] [id number] 2021-02-01 11:02:00 2021-02-01 11:02:00 Outpatient RACQUELFFER_A [facility] [id number] [facility] 2021-02-01 00:00:00 2021-02-01 00:00:00 Outpatient Kait Peoples [facility] [id number] 2021-02-01 00:00:00 2021-02-01 00:00:00 Kait Peoples MD: Jody Murphy [address], [address], [place] [address] , Ph. [facility] CLINIC, [address] [id number] [facility] 2020-02-03 10:22:00 2020-02-03 10:22:00 Outpatient EDELMIRA [facility] [id number] [facility] 2018-12-27 08:29:00 2018-12-27 08:29:00 [facility] [id number] [facility] 2018-12-17 09:47:00 2018-12-17 09:47:00 Outpatient KAIT BYRNE [facility] [id number] [facility] 2018-12-02 09:07:00 2018-12-02 09:07:00 Outpatient KAIT BYRNE [facility] [id number] [facility] 2016-02-07 09:39:00 2016-02-07 09:39:00 Outpatient KAIT BYRNE [facility] [id number] [facility] 2016-01-26 08:20:00 2016-01-26 08:20:00 Outpatient KAIT BYRNE [facility] [id number] [facility] 2016-01-17 11:33:00 2016-01-17 11:33:00 Outpatient KAIT BYRNE [facility] [id number] [facility] 2016-01-03 09:48:00 2016-01-03 09:48:00 Outpatient KAIT BYRNE [facility] [id number] [facility] 2000-12-18 13:09:00 2000-12-18 16:55:00 Emergency ER ELADIO RUDOLPH [facility] [id number] [facility] Results Test Description Test Time Test Comments Results Result Co mments Source [facility] - Serum or [id number] 00:00:00* Test Item Value Reference Range Interpretation Comme nts Glucose [Mass/volume] in Ser um or Plasma (test code = 2345-7) 99 mg/dL 65-99 Urea nitrogen [Mass/volume] in Serum or Plasma (test code = 3094-0) 12 mg/dL 8-27 Creatinine [Mass/volume] in Serum or Plasma (test code = 2160-0) 0.79 mg/dL 0.57-1.00 eGFR (test code = eGFR) 84 mL/min/1.73 >59 Urea nitrogen/Creatinine [Ma ss Ratio] in Serum or Plasma (test code = 3097-3) 15 12-28 Sodium [Moles/volume] in Ser um or Plasma (test code = 2951-2) 139 mmol/L 134-144 Potassium [Moles/volume] in Serum or Plasma (test code = 2823-3) 4.1 mmol/L 3.5-5.2 Chloride [Moles/volume] in Serum or Plasma (test code = 5-0) 97 mmol/L 96-106 Carbon dioxide, total [Moles/volume] in Serum or Plasma (test code = 2027-) 23 mmol/L 20-29 Calcium [Mass/volume] in Ser um or Plasma (test code = 89720-7) 9.9 mg/dL 8.7-10.3 Protein [Mass/volume] in Ser um or Plasma (test code = 2885-2) 7.0 g/dL 6.0-8.5 Albumin [Mass/volume] in Ser um or Plasma (test code = 1751-7) 4.5 g/dL 3.8-4.8 Globulin [Mass/volume] in Serum by calculation (test code = 32018-6) 2.5 g/dL 1.5-4.5 Albumin/Globulin [Mass Ratio ] in Serum or Plasma (test code = 1759-0) 1.8 1.2-2.2 Bilirubin.total [Mass/volume ] in Serum or Plasma (test code = 1974-) 0.5 mg/dL 0.0-1.2 Alkaline phosphatase [Enzymatic activity/volume] in Serum or Plasma (test code = 6768-6) 108 IU/L 44-121 Aspartate aminotransferase [Enzymatic activity/volume] in Serum or Plasma (test code = 1919-8) 31 IU/L 0-40 Alanine aminotransferase [Enzymatic activity/volume] in Serum or Plasma (test code = 1742-6) 37 IU/L 0-32 [facility] W Reflex Culture panel - [id number] 00:00:00* Test Item Value Reference Range Interpretation Comme nts Specific gravity of Urine by Test strip (test code = 5811-5) 1.023 1.005-1.030 pH of Urine by Test strip (t est code = 5803-2) 6.5 5.0-7.5 Color of Urine (test code = 5778-6) yellow yellow Appearance of Urine (test co de = 5767-9) clear clear Leukocyte esterase [Presence ] in Urine by Test strip (test code = 5799-2) 2+ negative A Protein [Presence] in Urine by Test strip (test code = 32058-6) 1+ negative/trace A Glucose [Presence] in Urine by Test strip (test code = 14497-7) negative negative Ketones [Presence] in Urine by Test strip (test code = 2514-8) trace negative A Hemoglobin [Presence] in Uri ne by Test strip (test code = 5794-3) negative negative Bilirubin.total [Presence] i n Urine by Test strip (test code = 5770-3) negative negative Urobilinogen [Mass/volume] i n Urine by Test strip (test code = 78256-9) 0.2 mg/dL 0.2-1.0 Nitrite [Presence] in Urine by Test strip (test code = 5802-4) positive negative A Microscopic observation [Identifier] in Urine sediment by Light microscopy (test code = 89130-8) officer lieutenant Leukocytes [#/area] in Urine sediment by Microscopy high power field (test code = 5821-4) 0-5 0-5 Erythrocytes [#/area] in Uri ne sediment by Microscopy high power field (test code = 07519-3) 0-2 0-2 Epithelial cells [#/area] in Urine sediment by Microscopy high power field (test code = 5787-7) 0-10 0-10 Epithelial cells.renal [#/ar ea] in Urine sediment by Microscopy high power field (test code = 18343-4) officer lieutenant Casts [Presence] in Urine se diment by Light microscopy (test code = 19781-2) none seen none seen Casts [Type] in Urine sedime nt by Light microscopy (test code = 50462-9) officer lieutenant Unidentified crystals [Prese nce] in Urine sediment by Light microscopy (test code = 5783-6) officer lieutenant Crystals [type] in Urine sed iment by Light microscopy (test code = 5782-8) officer lieutenant Mucus [Presence] in Urine se diment by Light microscopy (test code = 8247-9) officer lieutenant Bacteria [#/area] in Urine s ediment by Microscopy high power field (test code = 5769-5) many none seen/few A Yeast [#/area] in Urine sedi ment by Microscopy high power field (test code = 5822-2) officer lieutenant Trichomonas vaginalis [Prese nce] in Urine sediment by Light microscopy (test code = 5813-1) officer lieutenant Urine sediment comments by L ight microscopy Narrative (test code = 03803-7) officer lieutenant urinalysis reflex (test code = urinalysis reflex) comment Bacteria identified in Urine by Culture (test code = 630-4) comment A Other Antibiotic [Susceptibi lity] (test code = 05634-7) comment [facility], [id number] 00:00:00* Test Item Value Reference Range Interpretation Comme nts Cholesterol [Mass/volume] in Serum or Plasma (test code = 2093-3) 178 mg/dL 100-199 Triglyceride [Mass/volume] i n Serum or Plasma (test code = 2571-8) 171 mg/dL 0-149 H Cholesterol in HDL [Mass/vol ume] in Serum or Plasma (test code = 2085-9) 61 mg/dL >39 Cholesterol in VLDL [Mass/vo lume] in Serum or Plasma by calculation (test code = 88229-9) 29 mg/dL 5-40 Cholesterol in LDL [Mass/vol ume] in Serum or Plasma by calculation (test code = 24267-9) 88 mg/dL 0-99 Laboratory comment [Text] in Report Narrative (test code = 20209-0) officer lieutenant [facility] + T4, [id number] 00:00:00* Test Item Value Reference Range Interpretation Comme nts Thyrotropin [Units/volume] i n Serum or Plasma by Detection limit <= 0.005 mIU/L (test code = 84342-6) 1.430 uIU/mL 0.450-4.500 Thyroxine (T4) [Mass/volume] in Serum or Plasma (test code = 3026-2) 8.4 ug/dL 4.5-12.0 [facility] A1[facility]/Hemoglobin.total in Blood 2022-02-02 00:00:00* Test Item Value Reference Range Interpretation Comme nts Hemoglobin A1c/Hemoglobin.to yoshi in Blood (test code = 4548-4) 5.3 % 4.8-5.6 [facility]25-Hydroxyvitamin D3+25-Hydroxyvitamin D2 [Mass/volume] in Serum or [id number] 00:00:00* Test Item Value Reference Range Interpretation Comme nts 25-Hydroxyvitamin D3+25-Hydroxyvitamin D2 [Mass/volume] in Serum or Plasma (test code = 05908-6) 63.2 NG/mL 30.0-100.0 [facility] Center[facility]ryth[facility] sedimentation [id number] 00:00:00* Test Item Value Reference Range Interpretation Comme nts Erythrocyte sedimentation ra te by Westergren method (test code = 4537-7) 11 mm/HR 0-40 [facility]-reactive protein, [id number] 00:00:00* Test Item Value Reference Range Interpretation Comme nts C reactive protein [Mass/vol ume] in Serum or Plasma (test code = 1988-5) 4 mg/L 0-10 [facility], method unspecified - [id number] 00:00:00* Test Item Value Reference Range Interpretation Comme nts Leukocytes [#/volume] in Blo od by Automated count (test code = 6690-2) 6.0 x10e3/uL 3.4-10.8 Erythrocytes [#/volume] in Blood by Automated count (test code = 789-8) 4.51 x10e6/uL 3.77-5.28 Hemoglobin [Mass/volume] in Blood (test code = 718-7) 14.8 g/dL 11.1-15.9 Hematocrit [Volume Fraction] of Blood by Automated count (test code = 4544-3) 43.5 % 34.0-46.6 Erythrocyte mean corpuscular volume [Entitic volume] by Automated count (test code = 787-2) 97 fL 79-97 MCH [Entitic mass] by Automa derian count (test code = 785-6) 32.8 pg 26.6-33.0 Erythrocyte mean corpuscular hemoglobin concentration [Mass/volume] by Automated count (test code = 786-4) 34.0 g/dL 31.5-35.7 Erythrocyte distribution wid th [Ratio] by Automated count (test code = 788-0) 12.0 % 11.7-15.4 Platelets [#/volume] in Bloo d by Automated count (test code = 777-3) 217 x10e3/uL 150-450 Neutrophils/100 leukocytes i n Blood by Automated count (test code = 770-8) 66 % not estab. Lymphocytes/100 leukocytes i n Blood by Automated count (test code = 736-9) 23 % not estab. Monocytes/100 leukocytes in Blood by Automated count (test code = 5905-5) 8 % not estab. Eosinophils/100 leukocytes i n Blood by Automated count (test code = 713-8) 2 % not estab. Basophils/100 leukocytes in Blood by Automated count (test code = 706-2) 1 % not estab. immature cells (test code = immature cells) officer lieutenant Neutrophils [#/volume] in Bl ood by Automated count (test code = 751-8) 4.0 x10e3/uL 1.4-7.0 Lymphocytes [#/volume] in Bl ood by Automated count (test code = 731-0) 1.3 x10e3/uL 0.7-3.1 Monocytes [#/volume] in Bloo d by Automated count (test code = 742-7) 0.5 x10e3/uL 0.1-0.9 Eosinophils [#/volume] in Bl ood by Automated count (test code = 711-2) 0.1 x10e3/uL 0.0-0.4 Basophils [#/volume] in Bloo d by Automated count (test code = 704-7) 0.0 x10e3/uL 0.0-0.2 Immature granulocytes/100 leukocytes in Blood by Automated count (test code = 41262-7) 0 % not estab. Immature granulocytes [#/volume] in Blood by Automated count (test code = 68284-7) 0.0 x10e3/uL 0.0-0.1 Nucleated erythrocytes/100 leukocytes [Ratio] in Blood by Automated count (test code = 13943-5) officer lieutenant Morphology [Interpretation] in Blood Narrative (test code = 19591-0) officer lieutenant [facility] 2000 panel - Serum or [id number] 00:00:00* Test Item Value Reference Range Interpretation Comme nts Glucose [Mass/volume] in Ser um or Plasma (test code = 2345-7) 99 mg/dL 65-99 Urea nitrogen [Mass/volume] in Serum or Plasma (test code = 3094-0) 12 mg/dL 8-27 Creatinine [Mass/volume] in Serum or Plasma (test code = 2160-0) 0.79 mg/dL 0.57-1.00 eGFR (test code = eGFR) 84 mL/min/1.73 >59 Urea nitrogen/Creatinine [Ma ss Ratio] in Serum or Plasma (test code = 3097-3) 15 12-28 Sodium [Moles/volume] in Ser um or Plasma (test code = 2951-2) 139 mmol/L 134-144 Potassium [Moles/volume] in Serum or Plasma (test code = 2823-3) 4.1 mmol/L 3.5-5.2 Chloride [Moles/volume] in Serum or Plasma (test code = 2075-0) 97 mmol/L 96-106 Carbon dioxide, total [Moles/volume] in Serum or Plasma (test code = 2027-9) 23 mmol/L 20-29 Calcium [Mass/volume] in Ser um or Plasma (test code = 16222-7) 9.9 mg/dL 8.7-10.3 Protein [Mass/volume] in Ser um or Plasma (test code = 2885-2) 7.0 g/dL 6.0-8.5 Albumin [Mass/volume] in Ser um or Plasma (test code = 1751-7) 4.5 g/dL 3.8-4.8 Globulin [Mass/volume] in Serum by calculation (test code = 29302-0) 2.5 g/dL 1.5-4.5 Albumin/Globulin [Mass Ratio ] in Serum or Plasma (test code = 1759-0) 1.8 1.2-2.2 Bilirubin.total [Mass/volume ] in Serum or Plasma (test code = 1974-2) 0.5 mg/dL 0.0-1.2 Alkaline phosphatase [Enzymatic activity/volume] in Serum or Plasma (test code = 6768-6) 108 IU/L 44-121 Aspartate aminotransferase [Enzymatic activity/volume] in Serum or Plasma (test code = 1920-8) 31 IU/L 0-40 Alanine aminotransferase [Enzymatic activity/volume] in Serum or Plasma (test code = 1742-6) 37 IU/L 0-32 [facility] W Reflex Culture panel - [id number] 00:00:00* Test Item Value Reference Range Interpretation Comme nts Specific gravity of Urine by Test strip (test code = 5811-5) 1.023 1.005-1.030 pH of Urine by Test strip (t est code = 5803-2) 6.5 5.0-7.5 Color of Urine (test code = 5778-6) yellow yellow Appearance of Urine (test co de = 5767-9) clear clear Leukocyte esterase [Presence ] in Urine by Test strip (test code = 5799-2) 2+ negative A Protein [Presence] in Urine by Test strip (test code = 90486-7) 1+ negative/trace A Glucose [Presence] in Urine by Test strip (test code = 99429-3) negative negative Ketones [Presence] in Urine by Test strip (test code = 2514-8) trace negative A Hemoglobin [Presence] in Uri ne by Test strip (test code = 5794-3) negative negative Bilirubin.total [Presence] i n Urine by Test strip (test code = 5770-3) negative negative Urobilinogen [Mass/volume] i n Urine by Test strip (test code = 56191-9) 0.2 mg/dL 0.2-1.0 Nitrite [Presence] in Urine by Test strip (test code = 5802-4) positive negative A Microscopic observation [Identifier] in Urine sediment by Light microscopy (test code = 77404-4) officer lieutenant Leukocytes [#/area] in Urine sediment by Microscopy high power field (test code = 5821-4) 0-5 0-5 Erythrocytes [#/area] in Uri ne sediment by Microscopy high power field (test code = 84053-3) 0-2 0-2 Epithelial cells [#/area] in Urine sediment by Microscopy high power field (test code = 5787-7) 0-10 0-10 Epithelial cells.renal [#/ar ea] in Urine sediment by Microscopy high power field (test code = 35723-2) officer lieutenant Casts [Presence] in Urine se diment by Light microscopy (test code = 72642-7) none seen none seen Casts [Type] in Urine sedime nt by Light microscopy (test code = 33121-4) officer lieutenant Unidentified crystals [Prese nce] in Urine sediment by Light microscopy (test code = 5783-6) officer lieutenant Crystals [type] in Urine sed iment by Light microscopy (test code = 5782-8) officer lieutenant Mucus [Presence] in Urine se diment by Light microscopy (test code = 8247-9) officer lieutenant Bacteria [#/area] in Urine s ediment by Microscopy high power field (test code = 5769-5) many none seen/few A Yeast [#/area] in Urine sedi ment by Microscopy high power field (test code = 5822-2) officer lieutenant Trichomonas vaginalis [Prese nce] in Urine sediment by Light microscopy (test code = 5813-1) officer lieutenant Urine sediment comments by L ight microscopy Narrative (test code = 08398-9) officer lieutenant urinalysis reflex (test code = urinalysis reflex) comment Bacteria identified in Urine by Culture (test code = 630-4) comment A Other Antibiotic [Susceptibi lity] (test code = 33758-0) comment [facility], [id number] 00:00:00* Test Item Value Reference Range Interpretation Comme nts Cholesterol [Mass/volume] in Serum or Plasma (test code = 2093-3) 178 mg/dL 100-199 Triglyceride [Mass/volume] i n Serum or Plasma (test code = 2571-8) 171 mg/dL 0-149 H Cholesterol in HDL [Mass/vol ume] in Serum or Plasma (test code = 2085-9) 61 mg/dL >39 Cholesterol in VLDL [Mass/vo lume] in Serum or Plasma by calculation (test code = 89883-5) 29 mg/dL 5-40 Cholesterol in LDL [Mass/vol ume] in Serum or Plasma by calculation (test code = 36036-5) 88 mg/dL 0-99 Laboratory comment [Text] in Report Narrative (test code = 90451-7) officer lieutenant [facility] + T4, [id number] 00:00:00* Test Item Value Reference Range Interpretation Comme nts Thyrotropin [Units/volume] i n Serum or Plasma by Detection limit <= 0.005 mIU/L (test code = 42704-2) 1.430 uIU/mL 0.450-4.500 Thyroxine (T4) [Mass/volume] in Serum or Plasma (test code = 3026-2) 8.4 ug/dL 4.5-12.0 [facility]em[facility] A1c/Hemoglobin.total in Blood 2022-02-02 00:00:00* Test Item Value Reference Range Interpretation Comme nts Hemoglobin A1c/Hemoglobin.to yoshi in Blood (test code = 4548-4) 5.3 % 4.8-5.6 [facility]25-Hydroxyvitamin D3+25-Hydroxyvitamin D2 [Mass/volume] in Serum or [id number] 00:00:00* Test Item Value Reference Range Interpretation Comme nts 25-Hydroxyvitamin D3+25-Hydroxyvitamin D2 [Mass/volume] in Serum or Plasma (test code = 08002-5) 63.2 NG/mL 30.0-100.0 [facility] CenterErythrocyte sedimentation [id number] 00:00:00* Test Item Value Reference Range Interpretation Comme nts Erythrocyte sedimentation ra te by Westergren method (test code = 4537-7) 11 mm/HR 0-40 [facility]-reactive protein, [id number] 00:00:00* Test Item Value Reference Range Interpretation Comme nts C reactive protein [Mass/vol ume] in Serum or Plasma (test code = 1988-5) 4 mg/L 0-10 [facility]
== END 2024-06-12 13:44 | disposition home or self-care (01) ==
LOC: ER 11:37
DX: L76.34 Postprocedural seroma of skin and subcutaneous tissue following other procedure (principal); N64.9 Disorder of breast, unspecified; C50.919 Malignant neoplasm of unspecified site of unspecified female breast; I10 Essential (primary) hypertension; Z88.8 Allergy status to other drugs, medicaments and biological substances; Z88.0 Allergy status to penicillin
CPT/HCPCS: 76882; 99283

== ENCOUNTER 2024-07-15 10:18 | Day surgery (SDC) | payer OTHER ==
[2024-07-14 09:24] LABS: Absolute Eosinophils 0.2 K/uL (0-0.5); Absolute Lymphocytes (CBC) 1.4 K/uL (0.7-4.9); Absolute Monocytes 0.6 K/uL (0.1-1.3); Absolute Neutrophil 3.4 K/uL (1.8-8.0); Eosinophils % 3.5 % (0-4.4); Hematocrit 40.2 % (36.0-45.0); Hemoglobin 13.4 g/dL (12.0-15.0); Lymphocytes % 25.4 % (15.3-44.8); MCH 30.2 pg (27.0-35.0); MCHC 33.4 g/dL (32.0-36.0); MCV 90.3 fL (80-100); Monocytes % 10.3 % (3.3-12.3); Neutrophils % 60.8 % (41.7-73.7); Nucleated Red Blood Cells % 0.3 % (0-0); Platelets 231 thou/uL (152-406); RBC Red Blood Cell Count 4.45 M/uL (3.86-4.86); Red Cell Distribution Width 13.9 % (12.1-15.2)
[2024-07-14 09:36] LABS: Anion Gap 7.7 mEq/L (5.0-15.0); Potassium 4.7 mEq/L (3.5-5.1)
--- NOTE | 2024-07-14 12:47 | EKG ---
Test Date: 2024-07-14 Test Time: 08:42:55 Color Checker Roving Or Yarn: PREO MEASUREMENT RESULTS: Intervals: Rate: 53 NV: 150 QRSD: 82 QT: 418 QTc: 392 [place]: P: 44 NV: 150 QRS: 6 T: 35 INTERPRETIVE STATEMENTS: Sinus bradycardia Low voltage QRS Cannot rule out Anterior infarct, age undetermined Abnormal ECG Compared to ECG 06/12/2019 09:10:30 Low QRS voltage now present Sinus rhythm no longer present Myocardial infarct finding still present Electronically Signed On 07-14-24 12:46:27 CDT by Vasyl Bedoya
[2024-07-15] MEDS ORDERED: Ringers Lactate 1,000 ML IV ONE (10:38)
[2024-07-15] MEDS ORDERED: CEFAZOLIN SODIUM 2 GM/VIAL ONE (10:38)
[2024-07-15] MEDS ORDERED: CLINDAMYCIN 600MG/D5W 50 ML IV ONE (11:34)
[2024-07-15] MEDS ORDERED: propofoL 200 MG/20 ML VIAL IV ONE (11:35)
[2024-07-15] MEDS ORDERED: FENTANYL CITR 100 MCG/2 ML ONE ×3 (11:36→14:01)
[2024-07-15] MEDS ORDERED: LIDOCAINE 2% MPF 5 ML VIAL ONE (11:36)
[2024-07-15] MEDS ORDERED: MIDAZOLAM HCL 2 MG/2 ML INJ ONE (11:36)
[2024-07-15] MEDS ORDERED: LIDOCAINE HCL/EPINEPHRINE 20 ML MDV ONE (11:37)
[2024-07-15] MEDS ORDERED: EPHEDRINE SULF 50 MG/ML VIAL ONE (12:19)
[2024-07-15] MEDS ORDERED: ONDANSETRON 4 MG/2 ML VIAL ONE (12:24)
[2024-07-15] MEDS ORDERED: dexAMETHasone 4 MG/ML VIAL ONE (12:24)
[2024-07-15] MEDS ORDERED: HYDROMORPHONE HCL 1 MG/ML INJ ONE (13:55)
--- NOTE | 2024-07-15 14:23 | P.OP ---
Preoperative diagnosis: Recurrent RIGHT Breast / Axillary Cancer Postoperative diagnosis: Recurrent RIGHT Breast / Axillary Cancer Primary procedure: Excision of RIGHT Axillary Recurrent Cancer Anesthesia: GETA + Local Estimated blood loss: < 5cc Specimen: 2 Masses of RIGHT Axilla Findings: Recurrent RIGHT Breast / Axillary Cancer Complications: None Drain(s): ROGE drain (10 mm Round) Transferred to: Recovery Room Condition: Good
--- NOTE | 2024-07-15 15:08 | OP ---
Date of Procedure: 07/15/2024 Surgeon: Jaycob Rebollar MD, Brief History Of Present Illness: The patient is a 63-year-old female who presented to my clinic wit h a history of breast cancer on the right approximately 5-6 years ago. She did not receive any chemo therapy or radiation treatment or any hormonal treatment for her cancer at that time due to logistics and chose not to proceed with those modalities despite recommendation to proceed with that. She had a breast reconstruction which developed wounds which were chronic thereafter, requiring multiple tri ridements and multiple surgeries before in the past for this. She presented recently with recurrent masses in her right axilla. Two were identified on CT scan and by examination, they are biopsy-prove n recurrent cancer, and as such, she was deemed appropriate for operative intervention. Preoperative Diagnosis: Recurrent right breast cancer/axillary cancer. Postoperative Diagnosis: Recurrent right breast cancer/axillary cancer. Procedure Performed: Excision of right axillary recurrent cancer. Anesthesia: General endotracheal plus local. Estimated Blood Loss: Less than 5 cc. Specimen: Two masses of the right axilla. Findings: Recurrent right breast cancer/axillary cancer. Complications: None. Drains: A 10 mm round ROGE drain placed in the right axilla. Disposition: The patient was transferred to recovery room in good condition. Procedure In Detail: After informed consent was obtained, the patient was brought to the operating r oom, prepped and draped in the usual sterile fashion, after adequate anesthesia was achieved. A curv ilinear incision was made following the axillary fold where an area of palpable mass was appreciated after pre-marking in the preoperative area. Dissection continued down through the fat tissue planes to expose 2 structures which were firm and fixed in the right axilla to the deep tissues of the chest wall. They were firmly adhered to the chest wall itself as noted. These were circumferentially dis sected out and all feeding vessels were clipped using medium clip letter sorting machine operator to circumferentially dissec t out the area and leave fiducial markers in this area. The checkpoint nerve stimulator was used to map the nerves in the vicinity to ensure no injury was occurred to the long thoracic or thoracodorsal neurovascular bundles which were protected throughout. There was significant scar in the area along with some adipose tissue. No additional lymph nodes were appreciated in the vicinity on palpation. The masses were removed and sent off for pathologic examination leaving the fiducial markers behind. The area was copiously irrigated and a 10 mm round ROGE drain was brought into a superior stab incisi on and passed into the area after being sized appropriately. The effluent was suctioned out once aga in at this area and I then reapproximated the deep dermal plane using interrupted 3-0 Vicryl sutures. The skin was closed with a 4-0 Monocryl in a running fashion. Dermabond was placed over top. The patient tolerated the procedure well without incident or complication, transferred to PACU in good co ndition. All counts were correct at the end of the case. REED/DODIE Voice ID: [id number] Report ID: [id number]
[2024-07-15 15:21] VITALS: BP 142/62; TEMP 97
[2024-07-15 16:38] VITALS: O2SAT 95
== END 2024-07-15 16:35 | disposition home or self-care (01) ==
LOC: OR 10:18
PROVIDERS: ATTEND Surgery
PROC: 0JBD0ZZ Excision of Right Upper Arm Subcutaneous Tissue and Fascia, Open Approach (ICD-10-PCS; principal; 2024-07-15 12:00)
DX: C77.3 Secondary and unspecified malignant neoplasm of axilla and upper limb lymph nodes (principal); Z85.3 Personal history of malignant neoplasm of breast; Z17.0 Estrogen receptor positive status [ER+]
CPT/HCPCS: 11606; 93005; 85025; 80048; 36415; 86900; 86850; 86901; 88305; J2704; J1100; J2001; J2250; J3010 ×3; J1170; J2405; J7120; 88307

== ENCOUNTER 2024-08-20 11:05 | Day surgery (SDC) | payer OTHER ==
[2024-08-20] MEDS: Ringers Lactate 1,000 ML IV ONE (11:50)
[2024-08-20] MEDS ORDERED: propofoL 200 MG/20 ML VIAL IV ONE (12:50)
[2024-08-20] MEDS ORDERED: FENTANYL CITR 100 MCG/2 ML ONE (12:50)
[2024-08-20] MEDS ORDERED: MIDAZOLAM HCL 2 MG/2 ML INJ ONE (12:51)
[2024-08-20] MEDS: CEFAZOLIN SODIUM 2 GM/VIAL ONE (12:52)
[2024-08-20] MEDS: LIDOCAINE HCL/EPINEPHRINE 20 ML MDV ONE (13:17)
--- NOTE | 2024-08-20 14:11 | P.OP ---
Preoperative diagnosis: Positive Margin RIGHT Recurrent Breast Cancer Postoperative diagnosis: Positive Margin RIGHT Recurrent Breast Cancer Primary procedure: Wide local excision of Axillary Tissue Anesthesia: GETA + Local Estimated blood loss: <5cc Specimen: skin ellipse, additional deep margin Findings: prior fiducial markers noted Complications: None Transferred to: Recovery Room Condition: Good
[2024-08-20] MEDS: HYDROMORPHONE HCL 1 MG/ML INJ ONE (14:30)
[2024-08-20] MEDS: FENTANYL CITR 100 MCG/2 ML ONE (14:55)
[2024-08-20 15:45] VITALS: BP 152/62; TEMP 97.3; O2SAT 96
--- NOTE | 2024-08-20 18:09 | OP ---
Date of Procedure: 08/20/2024 Surgeon: Jaycob Rebollar MD, Preoperative Diagnosis: Positive margins on right recurrent breast cancer. Postoperative Diagnosis: Positive margins on right recurrent breast cancer. Procedure Performed: Wide local excision of axillary tissue on the right. Anesthesia: General endotracheal plus local. Estimated Blood Loss: Less than 5 cc. Specimens: Skin ellipse and additional deep margin. Findings: Prior fiducial markers noted. Complications: None. Disposition: Patient transferred to recovery room in good condition. Brief History Of Present Illness: The patient is a 63-year-old woman known to me from previous inter actions, who had a recurrent right breast cancer after receiving chemotherapy and radiatio n and having a heavy smoking history, which continues to the current date. She ultimately had a sima rhoda of a recurrent right breast cancer, which had a positive closed margin on previous surgical re-ex cision. As such, we had discussed risks, benefits, and alternatives of removal of an additional rim of normal tissue as I placed fiducial markers at the time in the previous wound bed adjacent to where the previous mass was removed. Therefore, fiducial markers would act as a guide for this possible s urgery, at this point. Procedure In Detail: After informed consent was obtained, patient was brought to the operating room, prepped and draped in the usual sterile fashion after adequate anesthesia was achieved. I made an e lliptical incision circumferentially around her previous wound to remove the wound and a rim of deep dermal tissue where there were marking stitches were placed, at this point, short superior and long l ateral and sent off for pathologic examination. I then dissected down to where the previous fiducial markers were which were medium clips. I ultimately found this area and there was some thickening of tissue in this vicinity, but however, there was significant scar as the previous procedure was less than a month ago. Ultimately, I circumferentially dissected this area and used a nerve stimulator to map out the area. There was evidence of the long thoracic nerve, which was in the near vicinity to this area of scar with the clips found in the anatomic position. However, I was able to separate thi s from the thoracodorsal neurovascular bundle. At this point, using careful meticulous dissection an d nerve stimulator, I removed an additional ellipse of tissue and a short stitch was placed inferior long lateral and the deep margin with clips were removed from previous surgery was inked as well with the ink and the clips being at the deep margin. This was then sent off for pathologic examination, at this point. I then irrigated the area copiously. Hemostasis was easily achieved with minimal edilia ctrocautery. The wound was irrigated once again and dried. Nerve stimulator test showed the nerves to be intact without any obvious injury, at this point. I then closed the deep dermal plane once aga in using interrupted 3-0 Vicryl sutures and skin was closed with interrupted 3-0 nylon sutures, and a sterile dressing placed over top. The patient tolerated the procedure well without incident or comp lication, transferred to PACU in good condition. All counts were correct at the end of the case. REED/DODIE Voice ID: [id number] Report ID: [id number]
== END 2024-08-20 15:40 | disposition home or self-care (01) ==
LOC: OR 11:05
PROVIDERS: ATTEND Surgery
PROC: 0JBD0ZZ Excision of Right Upper Arm Subcutaneous Tissue and Fascia, Open Approach (ICD-10-PCS; principal; 2024-08-20 13:00)
DX: D48.5 Neoplasm of uncertain behavior of skin (principal); N64.1 Fat necrosis of breast; N64.89 Other specified disorders of breast; F17.210 Nicotine dependence, cigarettes, uncomplicated; Z85.3 Personal history of malignant neoplasm of breast
CPT/HCPCS: 88305; J1171; J2250; J2704; J3010; J7120